=== PATIENT | female | born 1950 | race Caucasian/White ===

== ENCOUNTER 2017-06-30 18:11 | Emergency (ER) | payer MEDICARE, MEDICAID ==
[~2017-06-30] VITALS: Ht 157.5 cm; Wt 70.8 kg
[~2017-06-30 18:11] MED LIST: AZITHROMYCIN250 MG ORAL; COLACE100 MG ORAL; DIFLUCAN150 MG PO; IBUPROFEN400 MG ORAL; IBUPROFEN600 MG ORAL; NORCO 5-325 TA1 EACH ORAL
--- NOTE | 2017-06-30 18:26 | Emergency Room Report ---
History of Present Illness General Chief Complaint: Lower Extremity Injury Source: Patient, Family Member, Medical Record (Kervin Buckley) Present Illness HPI 66 yo female presents to ER s/p right foot injury. Patient reports drawer of fridge fell on her big toe. Patient reports pain is minimal at this time. Patient reports swelling, ecchymosis, and TTP of large toe Patient states she is able to ambulate; states she bears weight on back of her foot. Patient reports history of diabetes. Patient reports history of bunion surgery and wants to know if "nail in foot was moved". Patient denies fever, chest pain, SOB, muscle weakness, dizziness.. (Kervin Buckley) Allergies: Coded Allergies: No Known Allergies (Unverified , 06/11/14) Patient History Past Medical History: see triage record Social History: Denies: smoking, alcohol use, drug use Reviewed Nursing Documentation: PMH: Agreed, PSxH: Agreed (Kervin Buckley) Nursing Documentation-PMH Past Medical History: No History, Except For Hx Cardiac Problems: Yes - High Cholesterol Hx Hypertension: Yes Hx Diabetes: Yes (Kervin Buckley) Review of Systems All Other Systems: negative except mentioned in HPI (Kervin Buckley.Alex) Physical Exam Vital Signs Date Time Temp Pulse Resp B/P (MAP) Pulse Ox O2 Delivery O2 Flow Rate FiO2 06/30/17 18:15 97.9 62 18 144/73 98 Room Air Sp02 EP Interpretation: reviewed, normal General Appearance: no apparent distress, alert, GCS 15, non-toxic Head: normocephalic, atraumatic Eyes: bilateral eye normal inspection, bilateral eye PERRL Respiratory: chest non-tender, lungs clear, normal breath sounds, no respiratory distress, speaking full sentences Cardiovascular #1: regular rate, rhythm Cardiovascular #2: 2+ dorsalis pedis (R), 2+ dorsalis pedis (L) Musculoskeletal: back normal, digits/nails normal, non-tender, no calf tenderness, decreased range of motion - right foot, big toe: decreased ROM secondary to pain and swelling, swelling - ecchymosis over right foot big toe, other - NVI, tender - TTP over right foot big toe Neurologic: alert, oriented x3, responsive, motor strength/tone normal, sensory intact, speech normal Psychiatric: mood/affect normal Skin: no rash, warm/dry, well hydrated (Kervin Buckley) Medical Decision Making PA Attestation Dr. Enrique is my supervising physician with whom patient management has been discussed with. (Kervin Buckley) Diagnostic Impression: Primary Impression: Injury of toe Qualified Codes: S99.921A - Unspecified injury of right foot, initial encounter ER Course Pt. presents to the ED c/o right toe pain. Ddx considered but are not limited to show hairline fracture, sprain, strain, contusion. Vital signs: are WNL, pt. is afebrile ORDERS: An X-ray of the right foot was ordered, results show fracture of the distal phalanx of right big toe, per the preliminary radiology reading. ED INTERVENTIONS: Injured toe was brunilda taped and placed in a hard soled cast shoe. The affected toe was checked afterwards by me showing good alignment and support with distal neurovascular functioning intact. Patient reports she does not need crutches to ambulate. DISCHARGE: -Rx provided for Ibuprofen for pain symptoms. At this time pt. is stable for d/c to home. Patient informed that preliminary reading of x-ray shows possible fracture. Official radiology report will be available in the morning and patient will be called with any positive results. Will provide printed patient care instructions, and any necessary prescriptions. Patient instructed to follow with primary care provider in 3 - 5 days and to request further orthopedic follow-up. Care plan and follow up instructions have been discussed with the patient prior to discharge. Take medications as directed. Patient questions asked and answered. ER precautions given, patient instructed to return to ER immediately for any new or worsening of symptoms. (Kervin Buckley P.ARamírez) Other X-Ray Diagnostic Results Other X-Ray Diagnostic Results : X-Ray ordered: Right foot # of Views/Limited Vs Complete: 2 View Indication: Pain EP Interpretation: Yes PA Xray: Interpretation reviewed, by supervising MD, and agrees with findings. Interpretation: no dislocation, no soft tissue swelling Impression: Other - possible fracture of distal phalanx of big toe on right foot, no displacement, no angulation PA Scribe Text Isak Buckley PA-C (Kervin Buckley.ARamírez) Other X-Ray Diagnostic Results : # of Views/Limited Vs Complete: 3 View EP Interpretation: Yes Interpretation: no dislocation, no soft tissue swelling, no fractures, other - post op changes (screw) also DJD Impression: Other - post op - no fx Electronically Signed by: Eduard Enrique MD (Eduard Enrique M.D.) Last Vital Signs Date Time Temp Pulse Resp B/P (MAP) Pulse Ox O2 Delivery O2 Flow Rate FiO2 06/30/17 18:15 97.9 62 18 144/73 98 Room Air (Kervin Buckley) Last Vital Signs Date Time Temp Pulse Resp B/P (MAP) Pulse Ox O2 Delivery O2 Flow Rate FiO2 06/30/17 19:50 97.9 18 144/73 98 Room Air 06/30/17 18:15 62 Status: improved (Eduard Enrique M.D.) Disposition: HOME, SELF-CARE Condition: Stable Scripts Ibuprofen* (MOTRIN*) 600 Mg Tablet 600 MG ORAL Q8H Y for For Pain, #30 TAB 0 Refills Prov: Kervin Buckley 06/30/17 Patient Instructions: Toe Fracture, [id number] Additional Instructions: Followup with primary care provider in 1- 3 days to discuss treatment and further referral. Wear protective shoe and walk as tolerated, do not walk if painful to bear weight on foot. Take medications as directed. Patient questions asked and answered. ER precautions given, patient instructed to return to ER immediately for any new or worsening of symptoms. Kervin Buckley Jun 30, 2017 18:26 Eduard Enrique M.D. Jul 05, 2017 10:25
[2017-06-30] MEDS ORDERED: IBUPROFEN600 MG ORAL (19:41)
[2017-06-30 19:50] VITALS: BP 144/73
--- NOTE | 2017-07-01 10:05 | Diagnostic Imaging Report ---
Indication: Pain Technique: XRAY Foot Complete R Comparison: None Findings: The bones are demineralized. Patient is status post hallux valgus correction with osteotomy of the first metatarsal affixed by one screw. There is also prior osteotomy of the fifth proximal phalanx, likely prior hammertoe correction. No acute fractures identified. There is degenerative change at the first metatarsophalangeal joint. No focal soft tissue abnormality is evident. No radiopaque foreign body is seen. Impression: Postoperative appearance of the foot. No acute fracture or dislocation.
== END 2017-06-30 19:50 | disposition home or self-care (01) ==
LOC: EMR 18:55
DX: S99.921A Unspecified injury of right foot, initial encounter (principal); W20.8XXA Other cause of strike by thrown, projected or falling object, initial encounter; Y92.89 Other specified places as the place of occurrence of the external cause; I10 Essential (primary) hypertension; E11.9 Type 2 diabetes mellitus without complications; E78.00 Pure hypercholesterolemia, unspecified
CPT/HCPCS: 99283

== ENCOUNTER 2020-07-27 22:48 | Inpatient (IN) | payer MEDICARE, MEDICAID ==
[~2020-07-27] VITALS: Ht 162.6 cm; Wt 59.0 kg
[~2020-07-27 22:48] MED LIST changes: -ATENOLOL25 MG ORAL; -LINZESS145 MCG PO; -LIPITOR40 MG ORAL; -Morphine Sulfate 2mg/ml Inj(IV/IM USE ONLY) ONE; -SYNJARDY 12.5-1 EACH PO; -TRULICITY1.5 MG/0.5 SQ; -VITAMIN B-121000 MC1 INJ
[2020-07-27] MEDS ORDERED: Morphine Sulfate 2mg/ml Inj(IV/IM USE ONLY) IVP ONE ×2 (23:45)
[2020-07-27 23:52] LABS: BASOPHILS % (AUTO) 0.5 % (0.0-2.0); EOSINOPHILS % (AUTO) 0.1 % (0.0-3.0); HEMATOCRIT 47.8 % (37.0-47.0); HEMOGLOBIN 15.8 G/DL (12.0-16.0); LYMPHOCYTES % (AUTO) 14.2 % (20.0-45.0); MEAN CORPUSCULAR VOLUME 89 FL (80-99); MONOCYTES % (AUTO) 4.2 % (1.0-10.0); PLATELET COUNT 235 K/UL (150-450); RED BLOOD COUNT 5.37 M/UL (4.20-5.40); RED CELL DISTRIBUTION WIDTH 12.9 % (11.6-14.8); WHITE BLOOD COUNT 17.5 K/UL (4.8-10.8)
[2020-07-28] MEDS ORDERED: Piperacillin/Tazobactam 3.375 GM in NS 110 ML IVPB ONE ×2
[2020-07-28 00:06] LABS: ANION GAP 8 mmol/L (5-15); BLOOD UREA NITROGEN 20 mg/dL (7-18); CALCIUM 10.3 MG/DL (8.5-10.1); CARBON DIOXIDE 29 MMOL/L (21-32); CHLORIDE 101 MMOL/L (98-107); CREATININE 0.7 MG/DL (0.55-1.30); POTASSIUM 4.3 MMOL/L (3.5-5.1); SODIUM 138 MMOL/L (136-145)
[2020-07-28 00:10] LABS: ALANINE AMINOTRANSFERASE 26 U/L (12-78); ALBUMIN 4.2 G/DL (3.4-5.0); ALKALINE PHOSPHATASE 60 U/L (46-116); ASPARTATE AMINO TRANSFERASE 38 U/L (15-37); BILIRUBIN,TOTAL 0.9 MG/DL (0.2-1.0)
--- NOTE | 2020-07-28 00:26 | Emergency Room Report ---
History of Present Illness General Chief Complaint: Abdominal Pain Source: Patient Present Illness HPI Patient is a 70-year-old female with past medical history of diabetes, dyslipidemia and multiple previous abdominal surgeries who presents to the emergency department with chief complaint of periumbilical abdominal pain after eating this afternoon at 2 PM. Patient endorses nonbloody vomiting and constipation. She does not recall when her last bowel movement was. Last oral intake was this morning. Further history was obtained from her daughter Brooke who states that patient is chronically constipated requiring rectal enema. Patient denies chest pain, back pain, melena, hematochezia, hematemesis, cough, hemoptysis, fever, dysuria, hematuria, flank pain, slurred speech, headache, neck pain or any other symptoms. The patient's symptoms were gradual onset, severity was moderate, duration since 1 day. Quality: Aching/cramping Past medical history: Diabetes, dyslipidemia Past surgical history: x4, hysterectomy, tummy tuck, parathyroid surgery Smoking: Denies Alcohol use: Denies Drug use: Denies Review of systems: CONST: No fevers or chills, No night sweats PULMONARY: No productive cough, No shortness of breath CARDIAC: No chest pain, No palpitations GI: ++ vomiting, No diarrhea , No melena_or_BRBPR : No dysuria, No hematuria, No discharge NEURO: No new_focal_weakness_or_numbness, No confusion, No vision changes 14 point Review of Systems is otherwise negative except per HPI Physical Exam: GENERAL: Awake_alert_ nontoxic, no acute distress Spo2 98% on RA -normal EYES: Extraocular muscles are intact. Conjunctivae clear. Lids without swelling ENT: External nose and ear normal_in_appearance. Oropharynx clear. Head_atraumatic, Moist_oral_mucosa NECK: No JVD. No meningismus. No thyromegaly. Supple. Trachea midline RESP: Normal respiratory effort. Symmetric rise. No stridor. Clear_to_auscultation_No_rales_No_wheezes CARDIAC: Regular rate and regular rhytm. No_significant pedal edema. ABDOMEN: Soft. Mildly distended. Epigastric tenderness to palpation. Left upper quadrant tenderness to palpation_No_rebound_or_guarding. Negative Soto sign. Negative Rovsing's. Negative obturator. No CVA tenderness to palpation MSK: Normal muscle tone, without rigidity. Extremities without asymmetric deformity or swelling. SKIN: Warm and dry. No visible cyanosis or pallor. No petechial rash NEUROLOGIC: Alert, oriented x3. Motor_and_sensation_grossly_intact. No truncal ataxia. Gait_normal Psych: Normal mood and affect, normal judgment and insight - COORDINATION OF CARE Case was discussed with: Patient , Patient's Family , Patient's Physician Any labs and imaging that were ordered were interpreted as part of the medical decision making: Medical Decision Making/Plan: Differential diagnosis includes ileus, SBO, appendicitis, cholecystitis, choledocholithiasis, hepatitis, volvulus, AAA, pancreatitis, DM gastroparesis, gastritis, peptic ulcer disease, among others. Patient is currently afebrile and hemodynamically stable. She has diffuse abdominal tenderness to palpation. No rebound or guarding. No pulsatile mass. Pulses are equal and symmetric in the bilateral upper and lower extremity. Labs show leukocytosis of 17. Lactic acid is within normal limits. No significant acidosis or renal dysfunction. UA is consistent with urinary tract infection. EKG shows normal sinus rhythm. There is a Q wave in lead V3, however no signs of acute ischemia at this time. Doubt anginal equivalent. CT scan of the abdomen and pelvis demonstrates a small bowel obstruction. There is a transition point within the pelvis. There is distention up to 3 cm without any perforation. ED intervention included IV fluids, morphine for pain control, and broad- spectrum antibiotic. Blood cultures were sent. Patient's abdominal pain improved after morphine and dilaudid. I spoke extensively with patient's daughter about the dianosis of SBO with transition point. We spoke about the pathophysiology and treatment options, including the need for nasogastric suction for bowel decompression. The risk, benefits, and alternatives to treatment were discussed. I discussed that the majority of patients respond to conservative management via NG tube, however there is a small percentage of patients that also require surgery if they are refractory to colonic decompression. Her daughter states that she would much prefer for her mother to be discharged home to her care, so that she can see a family physician/GI specialist in the morning. I did educate her that a small bowel obstruction is an emergent diagnosis that requires prompt intervention with nasogastric tube due to risk for bowel necrosis, aspiration, and therefore potential airway concern. I advised that this is not a safe discharge and they would have to leave against medical advice if they wanted to leave the ED at this time with incomplete treatment. Daughter Brooke called her GI specialist, Dr Shaquille Parson, to ask for a second opinion. I also spoke with Dr Parson myself and gave sign out on the patie nt's presentation, laboratory findings, and CT scan showing small bowel obstruction with transition point. He states that he 100% agrees with putting in an NG tube in the emergency department. He also explained the benefits, risks, and alternatives of the procedure to the patient herself. After more verbal education about the pathophysiology of the small bowel obstruction, the carolin hunter now verbally consents to the procedure. Patient was also verbally consented at bedside for NG tube. NG tube was placed without issue and then placed to low intermittent wall suction after KUB confirmed placement. There was immediate retrieval of 150ml of bilious nonbloody material and patient reported immediate improvement of symptoms. The patient denies any bloody stool and has no pain out of proportion to exam, and no significant risk factors for mesenteric ischemia such as atrial fibrillation or severe PAD/PVD (peripheral arterial / vascular disease), thus definitive workup to rule out mesenteric ischemia was not pursued. Patient is afebrile, without any significant tenderness in the RUQ, and a negative Grampian sign. The patients presentation does not appear to be consistent with acute cholecystitis and thus definitive imaging to rule it out was not pursued. The patient has no significant risk factors for AAA (abdominal aortic aneurysm) such as age over 50 with history of hypertension, c onnective tissue disorder, or 1st degree relative with AAA. the patient has normal dorsalis pedis pulses, no radiation of pain to the back, and no pulsatile mass felt on exam. The patients profile was overall low risk for AAA and definitive workup was not pursued. The patients symptoms are not consistent with ACS (acute coronary syndrome), symptoms are not exertional, EKG without obvious ischemic change. I spoke with Dr. Chu, and reviewed the patients presentation, workup, results, and treatment. They will admit the patient for further care and evaluation, and assume care of the patient at this time. 0450; I also spoke with our [employer] management consultant, Dr. Mora who agrees to see and evaluate the patient. 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 COVID-19 Screening: Negative COVID-19 COVID-19 Testing Source: [place] Patient History Now: No Nursing Documentation-PMH Hx Cardiac Problems: Yes - High Cholesterol Hx Diabetes: Yes Physical Exam Vital Signs Date Time Temp Pulse Resp B/P (MAP) Pulse Ox O2 Delivery O2 Flow Rate FiO2 07/27/20 23:25 98.4 78 23 130/81 (97) 98 Room Air Sp02 EP Interpretation: reviewed, normal Medical Decision Making Diagnostic Impression: Primary Impression: Abdominal pain Additional Impressions: Small bowel obstruction Vomiting Diabetes Dyslipidemia UTI (urinary tract infection) EKG Diagnostic Results Troponin ordered: Yes When was troponin ordered?: Jul 28, 2020 JANINA Scribgreyson Text 12-lead EKG (interpreted by me) Time: 6 Indication: Rhythm analysis Tracing visualized and Interpreted by me. Rhythm: Normal sinus rhythm Rate: 67 bpm QTc: 456 Morphology: No_significant_ST_elevations_or_depressions, No STEMI Impression: Normal sinus rhythm. Q wave in lead V3. Normal axis. Normal intervals. Rhythm Strip Diag. Results Rhythm Strip Time: 01:47 EP Interpretation: yes Rate: 80 Rhythm: NSR, no PVC's, no ectopy Chest X-Ray Diagnostic Results Chest X-Ray Diagnostic Results : JANINA Scribgreyson Text XR Chest, 1 View Read by Me TECHNIQUE: Frontal view of the chest. FINDINGS/IMPRESSION: Enteric feeding tube terminates in the stomach. Emphysema with increased interstitial markings, correlate for COPD. No pleural effusion or pneumothorax. Stable cardiomegaly. Diffuse osseous demineralization. EXAM: XR Abdomen, 2 Views read by me COMPARISON: No relevant prior studies available. FINDINGS/IMPRESSION: Feeding tube terminates in the stomach. Nonobstructed bowel gas pattern. No free air under the diaphragms. Degenerative spine. Radiologist: Edison Andujar MD CT/MRI/US Diagnostic Results CT/MRI/US Diagnostic Results : Impression CT Abdomen and Pelvis Without Intravenous Contrast COMPARISON: No relevant prior studies available. FINDINGS: ABDOMEN: Liver: Unremarkable. Gallbladder and bile ducts: Unremarkable. Pancreas: Unremarkable. Spleen: Unremarkable. Adrenals: Unremarkable. Kidneys and ureters: Unremarkable. No obstructing stones. No hydronephrosis. Stomach and bowel: Small bowel obstruction. Transition point within the pelvis. Distention up to 3 cm. No perforation. PELVIS: Appendix: No findings to suggest acute appendicitis. Bladder: Unremarkable. Reproductive: Hysterectomy. ABDOMEN and PELVIS: Intraperitoneal space: Unremarkable. No free air. No significant fluid collection. Bones/joints: No acute fracture. Soft tissues: Unremarkable. Vasculature: Unremarkable. Lymph nodes: Unremarkable. IMPRESSION: Small bowel obstruction. Transition point within the pelvis. Distention up to 3 cm. No perforation. Dictated By: Osorio Duran M.D. Reevaluation Time: 04:55 Last Vital Signs Date Time Temp Pulse Resp B/P (MAP) Pulse Ox O2 Delivery O2 Flow Rate FiO2 07/27/20 23:25 98.4 78 23 130/81 (97) 98 Room Air Status: improved Disposition: ADMITTED INPATIENT Admit Decision Time: 04:55 Condition: Stable Referrals: NOT CHOSEN IPA/,REFERRING (PCP) Zulema Samson D.O. Jul 28, 2020 00:26
[2020-07-28 01:03] LABS: APPEARANCE,URINE CLEAR; BILIRUBIN, URINE NEGATIVE (NEGATIVE); COLOR,URINE PALE YELLOW; GLUCOSE, URINE (UA) 4+ (NEGATIVE); KETONES,URINE 3+ (NEGATIVE); LEUKOCYTE ESTERASE ,URINE 2+ (NEGATIVE); NITRITE,URINE NEGATIVE (NEGATIVE); PH,URINE 5 (4.5-8.0); PROTEIN,URINE NEGATIVE (NEGATIVE); UROBILINOGEN,URINE NORMAL MG/DL (0.0-1.0)
[2020-07-28 01:17] VITALS: BP 130/57
--- NOTE | 2020-07-28 01:21 | Diagnostic Imaging Report ---
EXAM: CT Abdomen and Pelvis Without Intravenous Contrast CLINICAL HISTORY: PAIN TECHNIQUE: Axial computed tomography images of the abdomen and pelvis without intravenous contrast. CTDI is 4.1 mGy and DLP is 218.2 mGy-cm. One or more of the following dose reduction techniques were used: automated exposure control, adjustment of the mA and/or kV according to patient size, use of iterative reconstruction technique. COMPARISON: No relevant prior studies available. FINDINGS: ABDOMEN: Liver: Unremarkable. Gallbladder and bile ducts: Unremarkable. Pancreas: Unremarkable. Spleen: Unremarkable. Adrenals: Unremarkable. Kidneys and ureters: Unremarkable. No obstructing stones. No hydronephrosis. Stomach and bowel: Small bowel obstruction. Transition point within the pelvis. Distention up to 3 cm. No perforation. PELVIS: Appendix: No findings to suggest acute appendicitis. Bladder: Unremarkable. Reproductive: Hysterectomy. ABDOMEN and PELVIS: Intraperitoneal space: Unremarkable. No free air. No significant fluid collection. Bones/joints: No acute fracture. Soft tissues: Unremarkable. Vasculature: Unremarkable. Lymph nodes: Unremarkable. IMPRESSION: Small bowel obstruction. Transition point within the pelvis. Distention up to 3 cm. No perforation.
[2020-07-28] MEDS ORDERED: Lidocaine 2% Visc 15ml soln ORAL ONE (02:30)
[2020-07-28] MEDS ORDERED: Morphine Sulfate 2mg/ml Inj(IV/IM USE ONLY) IVP ONE (02:45)
--- NOTE | 2020-07-28 03:41 | Diagnostic Imaging Report ---
EXAM: XR Chest, 1 View CLINICAL HISTORY: NGT TECHNIQUE: Frontal view of the chest. COMPARISON: No relevant prior studies available. FINDINGS/IMPRESSION: Enteric feeding tube terminates in the stomach. Emphysema with increased interstitial markings, correlate for COPD. No pleural effusion or pneumothorax. Stable cardiomegaly. Diffuse osseous demineralization. EXAM: XR Abdomen, 2 Views CLINICAL HISTORY: NGT TECHNIQUE: Frontal view of the abdomen/pelvis with upright view of the abdomen. COMPARISON: No relevant prior studies available. FINDINGS/IMPRESSION: Feeding tube terminates in the stomach. Nonobstructed bowel gas pattern. No free air under the diaphragms. Degenerative spine.
[2020-07-28 03:46] VITALS: BP 119/65
[2020-07-28] MEDS ORDERED: HYDROmorphone 1mg/ml Carpuject IVP ONE (05:00)
[2020-07-28 08:30] VITALS: BP 148/70
[2020-07-28] MEDS ORDERED: TRULICITY1.5 MG/0.5 SQ (10:20)
[2020-07-28] MEDS ORDERED: SYNJARDY 12.5-1 EACH PO (10:20)
[2020-07-28] MEDS ORDERED: VITAMIN B-121000 MC1 INJ (10:20)
[2020-07-28] MEDS ORDERED: LINZESS145 MCG PO (10:20)
[2020-07-28] MEDS ORDERED: ATENOLOL25 MG ORAL (10:20)
[2020-07-28] MEDS ORDERED: LIPITOR40 MG ORAL (10:20)
[2020-07-28] MEDS ORDERED: Morphine Sulfate 2mg/ml Inj(IV/IM USE ONLY) IVP PRN ×4 (10:45→16:15)
[2020-07-28] MEDS ORDERED: HydrALAZINE 25mg tab ORAL PRN (10:45)
--- NOTE | 2020-07-28 10:51 | History & Physical ---
History of Present Illness General Reason for Hospitalization: Abdominal Pain Present Illness Allergies: Coded Allergies: No Known Allergies (Unverified , 06/08/19) COVID-19 Screening Contact w/high risk pt: No Experienced COVID-19 symptoms?: No Medication History Scheduled Atenolol* (Tenormin*), 25 MG ORAL DAILY, (Reported) Atorvastatin Calcium* (Lipitor*), 40 MG ORAL DAILY, (Reported) Cyanocobalamin (Vitamin B-12) (Vitamin B-12), 1,000 MCG INJ once a month, (Reported) Dulaglutide (Trulicity), 1.5 MG SQ ONCE A WEEK, (Reported) Empagliflozin/Metformin HCl (Synjardy 12.5-1,000 mg Tablet), 1 EACH PO TWICE A DAY, (Reported) Linaclotide (Linzess), 145 MCG PO DAILY, (Reported) Discontinued Medications Aspirin* (Aspir 81*), 81 MG ORAL DAILY, (Reported) Discontinued Reason: Pt stopped taking med Bacitracin (Bacitracin), 1 APPLIC TOPIC BID Discontinued Reason: Pt stopped taking med Ibuprofen (Motrin), 600 MG ORAL Q8H PRN for For Pain Discontinued Reason: Pt stopped taking med Patient History Healthcare decision maker Resuscitation status Advanced Directive on File Review of Systems Review of Symptoms General ROS: no weight loss or fever Psychological ROS: no depression or mood changes, no memory loss Ophthalmic ROS: no visual changes or eye irritation ENT ROS: no nasal congestion, hearing loss, dizziness Allergy and Immunology ROS: no allergic symptoms or urticaria Hematological and Lymphatic ROS: no swollen glands, unusual bleeding or bruising Endocrine ROS: no polyuria, polydipsia, weight changes, temperature intolerance Respiratory ROS: no cough, shortness of breath, or wheezing Cardiovascular ROS: no chest pain or dyspnea on exertion Gastrointestinal ROS: + abd pain Musculoskeletal ROS: no myalgias or arthralgias Neurological ROS: no TIA or stroke symptoms Dermatological ROS: no new or changing skin lesions, rashes or pruritis Physical Exam Physical Exam General appearance: alert, cooperative, no distress, appears stated age Head: Normocephalic, without obvious abnormality, atraumatic Eyes: conjunctivae/corneas clear. PERRL, Throat: Lips, mucosa, and tongue normal. Teeth and gums normal Neck: supple, symmetrical, trachea midline, no adenopathy, thyroid: not enlarged, symmetric, no tenderness/mass/nodules, no carotid bruit and no JVD Lungs: clear to auscultation bilaterally Heart: regular rate and rhythm, S1, S2 normal, no murmur, click, rub or gallop Abdomen: Diffuse abd pain Extremities: extremities normal, atraumatic, no cyanosis or edema Pulses: 2+ and symmetric Skin: Skin color, texture, turgor normal. No rashes or lesions Neurologic: Grossly normal Last 24 Hour Vital Signs Date Time Temp Pulse Resp B/P (MAP) Pulse Ox O2 Delivery O2 Flow Rate FiO2 07/28/20 08:31 97.8 82 18 119/65 99 Room Air 07/28/20 08:30 99.0 91 18 148/70 (96) 98 07/28/20 03:46 97.8 82 18 119/65 99 Room Air 07/28/20 03:11 97.8 07/28/20 01:17 98.4 68 18 130/57 98 Room Air 07/28/20 01:07 78 23 Room Air 07/28/20 00:51 98.7 07/27/20 23:25 98.4 78 23 130/81 (97) 98 Room Air Intake and Output 07/27/20 07/28/20 19:00 07:00 Intake Total 100 ml Balance 100 ml Intake Oral 100 ml # Voids 2 Laboratory Tests Test 07/27/20 23:15 07/28/20 00:45 07/28/20 05:25 White Blood Count 17.5 K/UL (4.8-10.8) H Red Blood Count 5.37 M/UL (4.20-5.40) Hemoglobin 15.8 G/DL (12.0-16.0) Hematocrit 47.8 % (37.0-47.0) H Mean Corpuscular Volume 89 FL (80-99) Mean Corpuscular Hemoglobin 29.5 PG (27.0-31.0) Mean Corpuscular Hemoglobin Concent 33.2 G/DL (32.0-36.0) Red Cell Distribution Width 12.9 % (11.6-14.8) Platelet Count 235 K/UL (150-450) Mean Platelet Volume 7.8 FL (6.5-10.1) Neutrophils (%) (Auto) 81.0 % (45.0-75.0) H Lymphocytes (%) (Auto) 14.2 % (20.0-45.0) L Monocytes (%) (Auto) 4.2 % (1.0-10.0) Eosinophils (%) (Auto) 0.1 % (0.0-3.0) Basophils (%) (Auto) 0.5 % (0.0-2.0) Prothrombin Time 10.9 SEC (9.30-11.50) Prothromb Time International Ratio 1.0 (0.9-1.1) Activated Partial Thromboplast Time 24 SEC (23-33) Sodium Level 138 MMOL/L (136-145) Potassium Level 4.3 MMOL/L (3.5-5.1) Chloride Level 101 MMOL/L (98-107) Carbon Dioxide Level 29 MMOL/L (21-32) Anion Gap 8 mmol/L (5-15) Blood Urea Nitrogen 20 mg/dL (7-18) H Creatinine 0.7 MG/DL (0.55-1.30) Estimat Glomerular Filtration Rate > 60 mL/min (>60) Glucose Level 180 MG/DL (74-106) H Lactic Acid Level 1.10 mmol/L (0.4-2.0) Calcium Level 10.3 MG/DL (8.5-10.1) H Total Bilirubin 0.9 MG/DL (0.2-1.0) Aspartate Amino Transf (AST/SGOT) 38 U/L (15-37) H Alanine Aminotransferase (ALT/SGPT) 26 U/L (12-78) Alkaline Phosphatase 60 U/L (46-116) Troponin I 0.000 ng/mL (0.000-0.056) Total Protein 8.2 G/DL (6.4-8.2) Albumin 4.2 G/DL (3.4-5.0) Globulin 4.0 g/dL Albumin/Globulin Ratio 1.0 (1.0-2.7) Lipase 70 U/L (73-393) L Urine Color Pale yellow Urine Appearance Clear Urine pH 5 (4.5-8.0) Urine Specific [place] 1.020 (1.005-1.035) Urine Protein Negative (NEGATIVE) Urine Glucose (UA) 4+ (NEGATIVE) H Urine Ketones 3+ (NEGATIVE) H Urine Blood 2+ (NEGATIVE) H Urine Nitrite Negative (NEGATIVE) Urine Bilirubin Negative (NEGATIVE) Urine Urobilinogen Normal MG/DL (0.0-1.0) Urine Leukocyte Esterase 2+ (NEGATIVE) H Urine RBC 2-4 /HPF (0 - 2) H Urine WBC 30-40 /HPF (0 - 2) H Urine Squamous Epithelial Cells Few /LPF (NONE/OCC) Urine Bacteria Few /HPF (NONE) POC Whole Blood Glucose Pending Microbiology Date/Time Source Procedure Growth Status 07/28/20 00:00 Nasopharynx SARS-CoV-2 Antigen (Rapid)(MICHAEL) - Final Complete Height (Feet): 5 Height (Inches): 4.00 Weight (Pounds): 130 Medications Current Medications Medications (Trade) Dose Ordered Sig/Alexis Route PRN Reason Start Time Stop Time Status Last Admin Dose Admin Acetaminophen (Tylenol) 650 mg Q4H PRN ORAL Fever (temp > or = 100.4) 07/28/20 10:45 08/27/20 10:44 UNV Acetaminophen (Tylenol) 650 mg Q4H PRN ORAL Mild Pain (Pain Scale 1-3) 07/28/20 10:45 08/27/20 10:44 UNV Atenolol (Tenormin) 25 mg DAILY ORAL 07/29/20 09:00 08/28/20 08:59 UNV Atorvastatin Calcium (Lipitor) 40 mg DAILY ORAL 07/29/20 09:00 10/27/20 08:59 UNV Dextrose/Sodium Chloride 1,000 ml @ 75 mls/hr [id number] IV 07/28/20 10:45 08/27/20 10:44 UNV Hydralazine HCl (Apresoline) 25 mg Q4HR PRN ORAL SBP > 160 mm Hg 07/28/20 10:45 10/26/20 10:44 UNV Linaclotide (Linzess) 145 mcg DAILY ORAL 07/29/20 09:00 10/27/20 08:59 UNV Morphine Sulfate (Morphine Sulfate) 1 mg Q3HR PRN IVP For moderate pain (4-6) 07/28/20 10:45 08/04/20 10:44 UNV Morphine Sulfate (Morphine Sulfate) 2 mg Q2HR PRN IVP For severe pain (7-10) 07/28/20 10:45 08/04/20 10:44 UNV Non-Formulary Medication (Non-Formulary Med) 1 ea DAILY ORAL 07/29/20 09:00 08/28/20 08:59 UNV Non-Formulary Medication (Non-Formulary Med) 1 ea DAILY ORAL 07/29/20 09:00 08/28/20 08:59 UNV Non-Formulary Medication (Non-Formulary Med) 1 ea DAILY ORAL 07/29/20 09:00 08/28/20 08:59 UNV Non-Formulary Medication (Non-Formulary Med) 1 ea DAILY ORAL 07/29/20 09:00 08/28/20 08:59 UNV Non-Formulary Medication (Non-Formulary Med) 1 ea DAILY ORAL 07/29/20 09:00 08/28/20 08:59 UNV Ondansetron HCl (Zofran) 4 mg Q4HR PRN IVP Nausea & Vomiting 07/28/20 10:45 08/27/20 10:44 UNV Assessment/Plan Diagnosis [place]: #abd pain #nausea #SBO #diabetes # dyslipidemia #multiple previous abdominal surgeries (c section, hysterectomy) IMPRESSION: Small bowel obstruction. Transition point within the pelvis. Distention up to 3 cm. No perforation. - admit inpatient - NG placement - hold meds for now - pain control - antiemetics - NPO - general surgery eval - Bg control - ISS - monitor BP [facility] Hospital declaration I spent 70 minutes on this patient's case, and 35 minutes was dedicated to counseling and/or care coordination. MIPS ([employer]it-based Incentive Payment System) Applicable CPT: 44628, 83886 CHECK ALL THAT ARE MET: Measure #5 (CHF): All ages. Prescribe MICHELLE/ARB upon discharge for patients with left ventricular systolic dysfunction. If not, the reason is clearly documented in the medical chart. Measure #8 (CHF): All ages. Prescribe a beta timmy upon discharge for patients with left ventricular systolic dysfunction. If not, the reason is clearly documented in the medical chart. Measure #47 Advance care plan or surrogate decision maker documented in the medical record. Measure #130 The provider has documented, updated, or reviewed the patients current medication list and has documented it in the patients note. Measure #374 (All): Send report to referring provider. Measure #407(Sepsis due to MSSA bacteremia): Age 18+ Patient treated with a beta-lactam antibiotic (Nafcillin, Oxacillin or Cefazolin) as definitive therapy. MEDICAL COMPLEXITY High complexity medical decision making (need 2/3 categories) Problem - need 4 points Acute/new problem with new plan for workup (4 points, 1 max) Acute/new problem without additional workup (3 points, 1 max) Unstable chronic problem actively being managed (2 point each, 2 max) Stable chronic problem actively being managed (1 point each, 2 max) Self-limited/transient process (constipation, muscle ache, etc) (1 point each, 2 max) Data - need 4 points Reviewed labs/imaging studies (1 points, 2 max) Independent review of imaging (EKG, xrays, etc) (2 points, 2 max) Discussed case with consult/other MD/RN (2 points, 2 max) High Risk - qualify if have one of the following: Severe exacerbation of acute problem, acute mental status change, IV narcotics, monitoring drug levels (vancomycin, INR, tacrolimus etc) López Matthews M.D. Jul 28, 2020 10:51
--- NOTE | 2020-07-28 11:21 | Consultation ---
History of Present Illness General Date patient seen: Jul 28, 2020 Reason for Hospitalization: Abdominal Pain Present Illness HPI Patient is a 70-year-old female with past medical history of diabetes, dyslipidemia and multiple previous abdominal surgeries (c section, hysterectomy) who presents to the emergency department with chief complaint of periumbilical abdominal pain after eating afternoon at 2 PM day of admission. Patient endorses nonbloody vomiting and constipation. She does not recall when her last bowel movement was. Last oral intake was that morning prior to pain. went to restroom and had small bm but pain worse after. came in for evaluation. noted to have leukocytosis and sbo. surgery called to evaluate and assist with care. patient seen, chart reviewed, patient examined. Further history was obtained from her daughter Brooke who states that patient is chronically constipated requiring rectal enema. Patient denies chest pain, back pain, melena, hematochezia, hematemesis, cough, hemoptysis, fever, dysuria, hematuria, flank pain, slurred speech, headache, neck pain or any other symptoms. The patient's symptoms were gradual onset, severity was moderate, duration since 1 day. Allergies: Coded Allergies: No Known Allergies (Unverified , 06/08/19) COVID-19 Screening Contact w/high risk pt: No Experienced COVID-19 symptoms?: No Medication History Scheduled Atenolol* (Tenormin*), 25 MG ORAL DAILY, (Reported) Atorvastatin Calcium* (Lipitor*), 40 MG ORAL DAILY, (Reported) Cyanocobalamin (Vitamin B-12) (Vitamin B-12), 1,000 MCG INJ once a month, (Reported) Dulaglutide (Trulicity), 1.5 MG SQ ONCE A WEEK, (Reported) Empagliflozin/Metformin HCl (Synjardy 12.5-1,000 mg Tablet), 1 EACH PO TWICE A DAY, (Reported) Linaclotide (Linzess), 145 MCG PO DAILY, (Reported) Discontinued Medications Aspirin* (Aspir 81*), 81 MG ORAL DAILY, (Reported) Discontinued Reason: Pt stopped taking med Bacitracin (Bacitracin), 1 APPLIC TOPIC BID Discontinued Reason: Pt stopped taking med Ibuprofen (Motrin), 600 MG ORAL Q8H PRN for For Pain Discontinued Reason: Pt stopped taking med Patient History History Provided By: Patient, Family Member, Medical Record, PMD Healthcare decision maker Resuscitation status Advanced Directive on File Past Medical/Surgical History Past Medical/Surgical History: (1) Chest pain (2) Chest pain (3) Injury of lower extremity (4) Knee contusion (5) Injury of lower extremity (6) Upper respiratory infection (7) Knee abrasion (8) Patellar fracture (9) Hand contusion (10) Patient left without being seen (11) Diabetes (12) UTI (urinary tract infection) (13) Abdominal pain (14) Vomiting (15) Dyslipidemia (16) Small bowel obstruction Review of Systems Review of Symptoms General ROS: no weight loss or fever Psychological ROS: no depression or mood changes, no memory loss Ophthalmic ROS: no visual changes or eye irritation ENT ROS: no nasal congestion, hearing loss, dizziness Allergy and Immunology ROS: no allergic symptoms or urticaria Hematological and Lymphatic ROS: no swollen glands, unusual bleeding or bruising Endocrine ROS: no polyuria, polydipsia, weight changes, temperature intolerance Respiratory ROS: no cough, shortness of breath, or wheezing Cardiovascular ROS: no chest pain or dyspnea on exertion Gastrointestinal ROS: ++ abdominal pain, bright red blood in stool. Musculoskeletal ROS: no myalgias or arthralgias Neurological ROS: no TIA or stroke symptoms Dermatological ROS: no new or changing skin lesions, rashes or pruritis Physical Exam Physical Exam General appearance: alert, cooperative, no distress, appears stated age Head: Normocephalic, without obvious abnormality, atraumatic Eyes: conjunctivae/corneas clear. PERRL, EOM's intact. Fundi benign Throat: Lips, mucosa, and tongue normal. Teeth and gums normal Neck: supple, symmetrical, trachea midline, no adenopathy, thyroid: not enlarged, symmetric, no tenderness/mass/nodules, no carotid bruit and no JVD Lungs: clear to auscultation bilaterally Heart: regular rate and rhythm, S1, S2 normal, no murmur, click, rub or gallop Abdomen: soft, mild pelvic lower abdomen -tender. Bowel sounds dec No masses, no organomegaly Extremities: extremities normal, atraumatic, no cyanosis or edema Pulses: 2+ and symmetric Skin: Skin color, texture, turgor normal. No rashes or lesions Neurologic: Grossly normal Last 24 Hour Vital Signs Date Time Temp Pulse Resp B/P (MAP) Pulse Ox O2 Delivery O2 Flow Rate FiO2 07/28/20 08:31 97.8 82 18 119/65 99 Room Air 07/28/20 08:30 99.0 91 18 148/70 (96) 98 07/28/20 03:46 97.8 82 18 119/65 99 Room Air 07/28/20 03:11 97.8 07/28/20 01:17 98.4 68 18 130/57 98 Room Air 07/28/20 01:07 78 23 Room Air 07/28/20 00:51 98.7 07/27/20 23:25 98.4 78 23 130/81 (97) 98 Room Air Intake and Output 07/27/20 07/28/20 19:00 07:00 Intake Total 100 ml Balance 100 ml Intake Oral 100 ml # Voids 2 Laboratory Tests Test 07/27/20 23:15 07/28/20 00:45 07/28/20 05:25 White Blood Count 17.5 K/UL (4.8-10.8) H Red Blood Count 5.37 M/UL (4.20-5.40) Hemoglobin 15.8 G/DL (12.0-16.0) Hematocrit 47.8 % (37.0-47.0) H Mean Corpuscular Volume 89 FL (80-99) Mean Corpuscular Hemoglobin 29.5 PG (27.0-31.0) Mean Corpuscular Hemoglobin Concent 33.2 G/DL (32.0-36.0) Red Cell Distribution Width 12.9 % (11.6-14.8) Platelet Count 235 K/UL (150-450) Mean Platelet Volume 7.8 FL (6.5-10.1) Neutrophils (%) (Auto) 81.0 % (45.0-75.0) H Lymphocytes (%) (Auto) 14.2 % (20.0-45.0) L Monocytes (%) (Auto) 4.2 % (1.0-10.0) Eosinophils (%) (Auto) 0.1 % (0.0-3.0) Basophils (%) (Auto) 0.5 % (0.0-2.0) Prothrombin Time 10.9 SEC (9.30-11.50) Prothromb Time International Ratio 1.0 (0.9-1.1) Activated Partial Thromboplast Time 24 SEC (23-33) Sodium Level 138 MMOL/L (136-145) Potassium Level 4.3 MMOL/L (3.5-5.1) Chloride Level 101 MMOL/L (98-107) Carbon Dioxide Level 29 MMOL/L (21-32) Anion Gap 8 mmol/L (5-15) Blood Urea Nitrogen 20 mg/dL (7-18) H Creatinine 0.7 MG/DL (0.55-1.30) Estimat Glomerular Filtration Rate > 60 mL/min (>60) Glucose Level 180 MG/DL (74-106) H Lactic Acid Level 1.10 mmol/L (0.4-2.0) Calcium Level 10.3 MG/DL (8.5-10.1) H Total Bilirubin 0.9 MG/DL (0.2-1.0) Aspartate Amino Transf (AST/SGOT) 38 U/L (15-37) H Alanine Aminotransferase (ALT/SGPT) 26 U/L (12-78) Alkaline Phosphatase 60 U/L (46-116) Troponin I 0.000 ng/mL (0.000-0.056) Total Protein 8.2 G/DL (6.4-8.2) Albumin 4.2 G/DL (3.4-5.0) Globulin 4.0 g/dL Albumin/Globulin Ratio 1.0 (1.0-2.7) Lipase 70 U/L (73-393) L Urine Color Pale yellow Urine Appearance Clear Urine pH 5 (4.5-8.0) Urine Specific [place] 1.020 (1.005-1.035) Urine Protein Negative (NEGATIVE) Urine Glucose (UA) 4+ (NEGATIVE) H Urine Ketones 3+ (NEGATIVE) H Urine Blood 2+ (NEGATIVE) H Urine Nitrite Negative (NEGATIVE) Urine Bilirubin Negative (NEGATIVE) Urine Urobilinogen Normal MG/DL (0.0-1.0) Urine Leukocyte Esterase 2+ (NEGATIVE) H Urine RBC 2-4 /HPF (0 - 2) H Urine WBC 30-40 /HPF (0 - 2) H Urine Squamous Epithelial Cells Few /LPF (NONE/OCC) Urine Bacteria Few /HPF (NONE) POC Whole Blood Glucose Pending Microbiology Date/Time Source Procedure Growth Status 07/28/20 00:00 Nasopharynx SARS-CoV-2 Antigen (Rapid)(MICHAEL) - Final Complete Height (Feet): 5 Height (Inches): 4.00 Weight (Pounds): 130 Medications Current Medications Medications (Trade) Dose Ordered Sig/Alexis Route PRN Reason Start Time Stop Time Status Last Admin Dose Admin Acetaminophen (Tylenol) 650 mg Q4H PRN ORAL Fever (temp > or = 100.4) 07/28/20 10:45 08/27/20 10:44 Acetaminophen (Tylenol) 650 mg Q4H PRN ORAL Mild Pain (Pain Scale 1-3) 07/28/20 10:45 08/27/20 10:44 Atenolol (Tenormin) 25 mg DAILY ORAL 07/29/20 09:00 08/28/20 08:59 Atorvastatin Calcium (Lipitor) 40 mg QHS ORAL 07/28/20 21:00 10/26/20 20:59 Dextrose/Sodium Chloride 1,000 ml @ 75 mls/hr [id number] IV 07/28/20 11:00 08/27/20 10:59 Hydralazine HCl (Apresoline) 25 mg Q4H PRN ORAL SBP > 160 mm Hg 07/28/20 10:45 10/26/20 10:44 Linaclotide (Linzess) 144 mcg DAILY ORAL 07/29/20 09:00 10/27/20 08:59 Morphine Sulfate (Morphine Sulfate) 1 mg Q3H PRN IVP For moderate pain (4-6) 07/28/20 10:45 08/04/20 10:44 Morphine Sulfate (Morphine Sulfate) 2 mg Q2H PRN IVP For severe pain (7-10) 07/28/20 10:45 08/04/20 10:44 Non-Formulary Medication (Non-Formulary Med) 1 ea DAILY ORAL 07/29/20 09:00 08/28/20 08:59 UNV Non-Formulary Medication (Non-Formulary Med) 1 ea DAILY ORAL 07/29/20 09:00 08/28/20 08:59 UNV Non-Formulary Medication (Non-Formulary Med) 1 ea DAILY ORAL 07/29/20 09:00 08/28/20 08:59 UNV Ondansetron HCl (Zofran) 4 mg Q4H PRN IVP Nausea & Vomiting 2/18/21 10:45 08/27/20 10:44 Assessment/Plan Problem List: (1) Diabetes ICD Codes: E11.9 - Type 2 diabetes mellitus without complications SNOMED: 62142565 (2) UTI (urinary tract infection) ICD Codes: N39.0 - Urinary tract infection, site not specified SNOMED: 28465089 (3) Abdominal pain ICD Codes: R10.9 - Unspecified abdominal pain SNOMED: 20316748 (4) Vomiting ICD Codes: R11.10 - Vomiting, unspecified SNOMED: 989946884 (5) Dyslipidemia ICD Codes: E78.5 - Hyperlipidemia, unspecified SNOMED: 476120751 (6) Upper respiratory infection ICD Codes: J06.9 - Acute upper respiratory infection, unspecified SNOMED: 68199683 (7) Small bowel obstruction Assessment & Plan: This is a 70-year-old female with history of multiple abdominal surgeries including , hysterectomy, abdominoplasty who presented with acute onset abdominal pain for 1 day with associated nausea and vomiting. Leukocytosis identified CT with small bowel obstruction transition point in the pelvis. NG tube placed patient made n.p.o. and admitted further care and management. When seen at the bedside patient states her pain is fairly better and nothing as compared to yesterday when it began. States she has not had any flatus or bowel movement today last flatus and bowel movement was early yesterday prior to worsening onset. NG tube in place with minimal output since. KUB recent after CT scan with nonobstructive bowel gas pattern. On abdominal examination she is uncomfortable when palpating the lower pelvis but the remainder of the quadrants are fairly benign. She does not look significantly distended and is fairly comfortable. Currently no nausea vomiting fever chills. CT reviewed personally and there is significant portion of the small bowel with transition point identified in the proximal portion does have significant amount of fluid noted in it with distention. She is fairly constipated as the remaining of her colon distally is full. History of chronic constipation noted as well. Given the above findings Clinical examination review of the imaging patient does have a small bowel obstruction likely to secondary to abdominal adhesions from prior surgery. She has been initiated on nonoperative conservative management and slightly improved. I do long discussion with the patient regards the findings and decision and care plan choices. We discussed operative intervention versus nonoperative. Given she is made a slight improvement in the course over the past few hours we will continue with current care plan. N.p.o. IV fluids NG tube to suction repeat KUB in the morning followed by serial abdominal examinations. If continues to improve and potentially resolves a potential. Otherwise I discussed care plan with patient and there is potential for requiring exploratory laparotomy. Will follow with recommendations thank you for letting present patient's care Liver: Unremarkable. Gallbladder and bile ducts: Unremarkable. Pancreas: Unremarkable. Spleen: Unremarkable. Adrenals: Unremarkable. Kidneys and ureters: Unremarkable. No obstructing stones. No hydronephrosis. Stomach and bowel: Small bowel obstruction. Transition point within the pelvis. Distention up to 3 cm. No perforation. PELVIS: Appendix: No findings to suggest acute appendicitis. Bladder: Unremarkable. Reproductive: Hysterectomy. ABDOMEN and PELVIS: Intraperitoneal space: Unremarkable. No free air. No significant fluid collection. Bones/joints: No acute fracture. Soft tissues: Unremarkable. Vasculature: Unremarkable. Lymph nodes: Unremarkable. IMPRESSION: Small bowel obstruction. Transition point within the pelvis. Distention up to 3 cm. No perforation. ICD Codes: K56.609 - Unspecified intestinal obstruction, unspecified as to partial versus complete obstruction SNOMED: 139916610 (8) Chest pain ICD Codes: R07.9 - Chest pain, unspecified SNOMED: 97037339 (9) Chest pain ICD Codes: R07.9 - Chest pain, unspecified SNOMED: 57511630 (10) Patellar fracture ICD Codes: S82.009A - Unspecified fracture of unspecified patella, initial encounter for closed fracture SNOMED: 44134875 (11) Patient left without being seen ICD Codes: Z53.21 - Procedure and treatment not carried out due to patient leaving prior to being seen by health care provider SNOMED: 58801779825472 (12) Knee contusion ICD Codes: S80.00XA - Contusion of unspecified knee, initial encounter SNOMED: 39825192 (13) Hand contusion ICD Codes: S60.229A - Contusion of unspecified hand, initial encounter SNOMED: 4114257 (14) Injury of lower extremity ICD Codes: S89.90XA - Unspecified injury of unspecified lower leg, initial encounter SNOMED: 730655474 (15) Injury of lower extremity ICD Codes: S89.90XA - Unspecified injury of unspecified lower leg, initial encounter SNOMED: 983396742 (16) Knee abrasion ICD Codes: S80.219A - Abrasion, unspecified knee, initial encounter SNOMED: 197145760 Jaguar Mora Jul 28, 2020 11:21
[2020-07-28] MEDS: D5 1/2NS 1,000 ML IV SCH (11:35)
[2020-07-28 12:00] VITALS: BP 128/57
[2020-07-28] MEDS: Piperacillin/Tazobactam 3.375 GM in NS 110 ML IVPB SCH ×2 (14:56→21:41)
--- NOTE | 2020-07-28 15:24 | Consultation ---
Consult Note Consult Note DATE OF CONSULTATION: 07/28/2020 CONSULTING PHYSICIAN: Sean Prince MD. ATTENDING PHYSICIAN: Dr. Matthews REASON FOR CONSULTATION: Vomiting, risk of aspiration, abnormal chest x-ray HISTORY OF PRESENT ILLNESS: Ms. Bhat is a 70-year-old female with past medical history of diabetes mellitus, dyslipidemia, and multiple prior abdominal surgeries, who presented to the ED for evaluation of periumbilical abdominal pain after eating lunch today. Patient reportedly had nonbloody vomiting and constipation. Per family, patient is chronically constipated requiring rectal enema periodically. Patient denies chest pain, back pain, melena, hematochezia, hematemesis, cough, hemoptysis, fever, dysuria, hematuria, flank pain, slurred speech, headache, neck pain or any other symptoms. Patient is having aching/cramping abdominal pain, gradual onset, with moderate severity x1 day. Patient tested negative for COVID-19 in the ER. Patient is now admitted to the hospital and was seen in MedSurg unit. PAST MEDICAL HISTORY: Diabetes mellitus, dyslipidemia, constipation, heart valve problem (per daughter) MEDICATIONS: Atenolol, aspirin, atorvastatin, vitamin B-12, Trulicity, Synjardy, ibuprofen, linaclotide ALLERGIES: No known allergies FAMILY HISTORY: noncontributory PERSONAL/SOCIAL HISTORY: Patient denies smoking, drug use, or alcohol use REVIEW OF SYSTEMS: Negative except mentioned in HPI PHYSICAL EXAMINATION: VITAL SIGNS: Blood pressure 119/65, heart rate 82, respiratory rate 18, weight 59 kg, height 162 cm. General: Patient laying in bed with head of bed elevated, NAD HEENT: Head exam reveals that the head is normocephalic, atraumatic without deformity or unusual swelling. Pupils are PERRLA. Enteric tube through the nose CHEST AND LUNGS: Reveals clear, normal, symmetrical breath sounds with no adventitious sounds. CARDIOVASCULAR: Reveals normal S1, S2 without murmurs, rubs, or clicks. ABDOMEN: Mild tenderness on the left side RECTAL: Deferred. MUSCULOSKELETAL: There is no tenderness to palpation. Range of motion is normal. NEUROLOGICAL: Alert and oriented x3 , nonfocal LABORATORY DATA: Laboratory testing shows WBC 17.5, hematocrit 47.8. Chemistries show BUN 20, glucose 180, calcium 10.3, AST 38, lipase 70 Urinalysis shows 4+ glucose, 3+ ketones, 2+ blood, 2+ leukocyte esterase Assessment/Plan 1. UTI -Per primary MD 2. Nausea/vomiting with risk of aspiration - s/p NG tube; collecting bilious fluids -On Zofran for nausea -Monitor WBC and fever 3. Emphysematous changes on CXR -Patient denies smoking history; spoke to daughter as well who denies smoking hx -Patient is saturating well on room air; provide supplemental oxygen as needed 4. COVID-19 negative (07/28) 5. Small bowel obstruction, possibly secondary to abdominal adhesions from multiple abdominal surgical history -Slight improvement with nonoperative conservative measurement per surgeon -Due for repeat KUB tomorrow morning 6. DM with hyperglycemia - BG control; Accu-checks - per primary MD The care for this patient was discussed with my supervising physician. Time spent for this case was approximately 31 minutes. Addison Church Jul 28, 2020 15:24
[2020-07-28 16:00] VITALS: BP 126/54
[2020-07-28] MEDS ORDERED: NovoLOG Insulin Flexpen SUBQ SCH (16:30)
[2020-07-28] MEDS: NovoLOG Insulin Flexpen SUBQ SCH (17:26)
[2020-07-28 20:00] VITALS: BP 130/65
[2020-07-28] MEDS ORDERED: Atorvastatin 20mg tab ORAL SCH (21:00)
[2020-07-29] VITALS (12 sets, daily range): BP systolic 111–138; BP diastolic 58–67
[2020-07-29] MEDS: D5 1/2NS 1,000 ML IV SCH (00:20)
[2020-07-29] MEDS: NovoLOG Insulin Flexpen SUBQ SCH ×5 (05:53→23:10)
[2020-07-29] MEDS: Piperacillin/Tazobactam 3.375 GM in NS 110 ML IVPB SCH ×3 (05:56→21:38)
[2020-07-29 07:03] LABS: BASOPHILS % (AUTO) 0.4 % (0.0-2.0); HEMATOCRIT 43.6 % (37.0-47.0); HEMOGLOBIN 14.2 G/DL (12.0-16.0); MEAN CORPUSCULAR VOLUME 90 FL (80-99); NEUTROPHILS % (AUTO) 74.7 % (45.0-75.0); PLATELET COUNT 208 K/UL (150-450); RED BLOOD COUNT 4.83 M/UL (4.20-5.40); RED CELL DISTRIBUTION WIDTH 13.3 % (11.6-14.8); WHITE BLOOD COUNT 15.4 K/UL (4.8-10.8)
[2020-07-29 07:23] LABS: INR 1.7 (0.9-1.1)
[2020-07-29 07:40] LABS: ALANINE AMINOTRANSFERASE 20 U/L (12-78); ALBUMIN 3.2 G/DL (3.4-5.0); ALBUMIN/GLOBULIN RATIO 0.9 (1.0-2.7); ALKALINE PHOSPHATASE 51 U/L (46-116); AMYLASE 99 U/L (25-115); ANION GAP 11 mmol/L (5-15); ASPARTATE AMINO TRANSFERASE 20 U/L (15-37); BILIRUBIN,TOTAL 0.9 MG/DL (0.2-1.0); BLOOD UREA NITROGEN 19 mg/dL (7-18); CARBON DIOXIDE 24 MMOL/L (21-32); CHLORIDE 108 MMOL/L (98-107); CREATININE 0.6 MG/DL (0.55-1.30); POTASSIUM 3.4 MMOL/L (3.5-5.1); SODIUM 143 MMOL/L (136-145)
[2020-07-29] MEDS ORDERED: Atenolol 25mg tab ORAL SCH (09:00)
[2020-07-29] MEDS ORDERED: Linaclotide 72mcg ORAL SCH (09:00)
[2020-07-29] MEDS ORDERED: Omnipaque-300 100ml vial INJ PRN (10:30)
--- NOTE | 2020-07-29 11:41 | Surgery Progress Note ---
Surgery Progress Note Subjective Additional Comments wbc improved states pain almost resolved mild nausea with ng tube no emesis minimal ng tube output and tube checked for functionality and patency abd exam improved kub noted no flatus or BM Objective Last 24 Hour Vital Signs Date Time Temp Pulse Resp B/P (MAP) Pulse Ox O2 Delivery O2 Flow Rate FiO2 07/29/20 08:50 89 138/67 07/29/20 08:00 99.6 89 18 138/67 (90) 97 07/29/20 04:00 99.3 85 18 132/64 (86) 97 07/29/20 00:00 99.7 93 18 111/64 (80) 96 07/28/20 21:00 Room Air 07/28/20 20:00 100.1 88 18 130/65 (86) 98 07/28/20 16:00 100.3 88 18 126/54 (78) 97 07/28/20 15:01 Room Air 07/28/20 12:00 98.5 86 17 128/57 (80) 97 I&O Intake and Output 07/28/20 07/29/20 19:00 07:00 Intake Total 525 ml 979 ml Balance 525 ml 979 ml IV Total 525 ml 979 ml # Voids 1 3 Cardiovascular: RSR Respiratory: clear Abdomen: soft, flat, non-tender, present bowel sounds, non-distended, decreased bowel sounds Extremities: no edema, no tenderness, no cyanosis Laboratory Tests Test 07/28/20 12:28 07/28/20 17:23 07/28/20 20:33 07/29/20 05:35 POC Whole Blood Glucose 112 MG/DL (74-106) H 105 MG/DL (74-106) 131 MG/DL (74-106) H White Blood Count 15.4 K/UL (4.8-10.8) H Red Blood Count 4.83 M/UL (4.20-5.40) Hemoglobin 14.2 G/DL (12.0-16.0) Hematocrit 43.6 % (37.0-47.0) Mean Corpuscular Volume 90 FL (80-99) Mean Corpuscular Hemoglobin 29.5 PG (27.0-31.0) Mean Corpuscular Hemoglobin Concent 32.7 G/DL (32.0-36.0) Red Cell Distribution Width 13.3 % (11.6-14.8) Platelet Count 208 K/UL (150-450) Mean Platelet Volume 8.3 FL (6.5-10.1) Neutrophils (%) (Auto) 74.7 % (45.0-75.0) Lymphocytes (%) (Auto) 15.0 % (20.0-45.0) L Monocytes (%) (Auto) 10.0 % (1.0-10.0) Eosinophils (%) (Auto) 0.0 % (0.0-3.0) Basophils (%) (Auto) 0.4 % (0.0-2.0) Erythrocyte Sedimentation Rate 13 MM/HR (0-30) Prothrombin Time 18.1 SEC (9.30-11.50) H Prothromb Time International Ratio 1.7 (0.9-1.1) H Activated Partial Thromboplast Time 33 SEC (23-33) Sodium Level 143 MMOL/L (136-145) Potassium Level 3.4 MMOL/L (3.5-5.1) L Chloride Level 108 MMOL/L (98-107) H Carbon Dioxide Level 24 MMOL/L (21-32) Anion Gap 11 mmol/L (5-15) Blood Urea Nitrogen 19 mg/dL (7-18) H Creatinine 0.6 MG/DL (0.55-1.30) Estimat Glomerular Filtration Rate > 60 mL/min (>60) Glucose Level 118 MG/DL (74-106) H Lactic Acid Level 1.10 mmol/L (0.4-2.0) Calcium Level 8.0 MG/DL (8.5-10.1) #L Total Bilirubin 0.9 MG/DL (0.2-1.0) Aspartate Amino Transf (AST/SGOT) 20 U/L (15-37) Alanine Aminotransferase (ALT/SGPT) 20 U/L (12-78) Alkaline Phosphatase 51 U/L (46-116) C-Reactive Protein, Quantitative 8.4 mg/dL (0.00-0.90) H Total Protein 6.8 G/DL (6.4-8.2) Albumin 3.2 G/DL (3.4-5.0) L Globulin 3.6 g/dL Albumin/Globulin Ratio 0.9 (1.0-2.7) L Amylase Level 99 U/L (25-115) Lipase 44 U/L (73-393) L Test 07/29/20 05:52 POC Whole Blood Glucose 103 MG/DL (74-106) Plan Problems: (1) Diabetes (2) UTI (urinary tract infection) (3) Abdominal pain (4) Vomiting (5) Dyslipidemia (6) Upper respiratory infection (7) Small bowel obstruction Assessment & Plan: This is a 70-year-old female with history of multiple abdominal surgeries including , hysterectomy, abdominoplasty who presented with acute onset abdominal pain for 1 day with associated nausea and vomiting. Leukocytosis identified CT with small bowel obstruction transition point in the pelvis. NG tube placed patient made n.p.o. and admitted further care and management. When seen at the bedside patient states her pain is fairly better and nothing as compared to yesterday when it began. States she has not had any flatus or bowel movement today last flatus and bowel movement was early yesterday prior to worsening onset. NG tube in place with minimal output since. KUB recent after CT scan with nonobstructive bowel gas pattern. On abdominal examination she is uncomfortable when palpating the lower pelvis but the remainder of the quadrants are fairly benign. She does not look significantly distended and is fairly comfortable. Currently no nausea vomiting fever chills. CT reviewed personally and there is significant portion of the small bowel with transition point identified in the proximal portion does have significant amount of fluid noted in it with distention. She is fairly constipated as the remaining of her colon distally is full. History of chronic constipation noted as well. Given the above findings Clinical examination review of the imaging patient does have a small bowel obstruction likely to secondary to abdominal adhesions from prior surgery. She has been initiated on nonoperative conservative management and slightly improved. I do long discussion with the patient regards the findings and decision and care plan choices. We discussed operative intervention versus nonoperative. Given she is made a slight improvement in the course over the past few hours we will continue with current care plan. N.p.o. IV fluids NG tube to suction repeat KUB in the morning followed by serial abdominal examinati ons. If continues to improve and potentially resolves a potential. Otherwise I discussed care plan with patient and there is potential for requiring exploratory laparotomy. Will follow with recommendations thank you for letting present patient's care npo iv fluids trend labs CT with IV contrast ordered discussed with family and patient ng tube to low intermittent suction ct noted persistent sbo no better recommend surgery consent to or Liver: Unremarkable. Gallbladder and bile ducts: Unremarkable. Pancreas: Unremarkable. Spleen: Unremarkable. Adrenals: Unremarkable. Kidneys and ureters: Unremarkable. No obstructing stones. No hydronephrosis. Stomach and bowel: Small bowel obstruction. Transition point within the pelvis. Distention up to 3 cm. No perforation. PELVIS: Appendix: No findings to suggest acute appendicitis. Bladder: Unremarkable. Reproductive: Hysterectomy. ABDOMEN and PELVIS: Intraperitoneal space: Unremarkable. No free air. No significant fluid collection. Bones/joints: No acute fracture. Soft tissues: Unremarkable. Vasculature: Unremarkable. Lymph nodes: Unremarkable. IMPRESSION: Small bowel obstruction. Transition point within the pelvis. Distention up to 3 cm. No perforation. (8) Chest pain (9) Chest pain (10) Patellar fracture (11) Patient left without being seen (12) Knee contusion (13) Hand contusion (14) Injury of lower extremity (15) Injury of lower extremity (16) Knee abrasion Jaguar Mora Jul 29, 2020 11:41
--- NOTE | 2020-07-29 13:06 | Diagnostic Imaging Report ---
Clinical Indication: Abdominal pain Technique: Patient given enteric contrast via nasogastric tube.. IV administration nonionic contrast. Venous phase spiral acquisition obtained through the abdomen and pelvis. Multiplanar reconstructions were generated. Total dose length product 216 mGycm. CTDIvol(s) 4 mGy. Dose reduction achieved using automated exposure control Comparison: 07/28/2020 Findings: Again demonstrated are dilated fluid-filled small bowel loops. There appears to be a transition to nondilated distal in the pelvis. Extensive small bowel distention is similar to the previous study. There is a small amount of free intraperitoneal fluid, predominantly in the pelvis and over the dome of the liver, slightly increased from the previous study. There is also increasing infiltration of the pelvic fat. There is only limited forward transit of ingested contrast The appendix is normal. There is one or more colonic diverticula. No evidence of diverticulitis. No free intraperitoneal gas. No bowel wall pneumatosis. There is a nasogastric tube in place. The tip is at the level gastric antrum. The liver, gallbladder, bile ducts are unremarkable. Pancreas is atrophic. The spleen, adrenals, right kidney are unremarkable. Left kidney demonstrates subcentimeter low-attenuation lesions which are too small to characterize, most likely benign simple cysts. No pelvic mass or adenopathy. The uterus is not evident, presumably removed. There is mild edema of the subcutaneous fat. The included lung bases demonstrate dependent atelectatic changes. There is trace pleural fluid on the right. Impression: Positive for ongoing small bowel obstruction, transition point in the pelvis presumably at the level of the mid ileum. Note increasing inflammation of the pelvic fat at the transition point as well as increasing although still limited free intraperitoneal fluid. Probable colonic diverticulosis. No evidence of diverticulitis Satisfactory position of nasogastric tube Mild anasarca Trace right pleural fluid Other findings as noted, including dependent basilar atelectatic changes, prior hysterectomy, probable left renal cysts, atrophic pancreas Findings previously discussed by phone with Dr. Mora The CT scanner at [facility] is accredited by the [employer] and the scans are performed using protocols designed to limit radiation exposure to as low as reasonably achievable to attain images of sufficient resolution adequate for diagnostic evaluation.
--- NOTE | 2020-07-29 13:07 | Internal Med Progress Note ---
Subjective Physician Name López Matthews Attending Physician López Matthews M.D. Current Medications Medications (Trade) Dose Ordered Sig/Alexis Route PRN Reason Start Time Stop Time Status Last Admin Dose Admin Acetaminophen (Tylenol) 650 mg Q4H PRN ORAL Fever (temp > or = 100.4) 07/28/20 10:45 08/27/20 10:44 Acetaminophen (Tylenol) 650 mg Q4H PRN ORAL Mild Pain (Pain Scale 1-3) 07/28/20 10:45 08/27/20 10:44 Atenolol (Tenormin) 25 mg DAILY ORAL 07/29/20 09:00 08/28/20 08:59 07/29/20 08:50 Atorvastatin Calcium (Lipitor) 40 mg QHS ORAL 07/28/20 21:00 10/26/20 20:59 Barium Sulfate (Readi-Cat 2) 450 ml NOW PRN ORAL Radiology Procedure 07/29/20 10:30 07/31/20 10:29 Cetylpyridinium Chloride (Cepacol) 1 lozg Q2H PRN GILMAR SORE THROAT 07/28/20 14:30 10/26/20 14:29 Dextrose (Dextrose 50%) 25 ml Q30M PRN IV Hypoglycemia 07/28/20 11:45 10/26/20 11:44 Dextrose (Dextrose 50%) 50 ml Q30M PRN IV Hypoglycemia 07/28/20 11:45 10/26/20 11:44 Dextrose/Sodium Chloride 1,000 ml @ 75 mls/hr [id number] IV 07/28/20 11:00 08/27/20 10:59 07/29/20 00:20 Famotidine (Pepcid I.v.) 20 mg Q12HR IVP 07/28/20 21:00 08/27/20 20:59 07/29/20 08:50 Hydralazine HCl (Apresoline) 25 mg Q4H PRN ORAL SBP > 160 mm Hg 07/28/20 10:45 10/26/20 10:44 Insulin Aspart (NovoLOG) Q6HR SUBQ 07/28/20 18:00 10/26/20 17:59 Iohexol (OMNIPAQUE-300 100ml) 100 ml NOW PRN INJ Radiology Procedure 07/29/20 10:30 07/31/20 10:29 Linaclotide (Linzess) 144 mcg DAILY ORAL 07/29/20 09:00 10/27/20 08:59 07/29/20 08:51 Morphine Sulfate (Morphine Sulfate) 1 mg Q4H PRN IVP For moderate pain (4-6) 07/28/20 16:15 08/04/20 16:14 Morphine Sulfate (Morphine Sulfate) 2 mg Q4H PRN IVP For severe pain (7-10) 07/28/20 16:15 08/04/20 16:14 Non-Formulary Medication (Non-Formulary Med) 1 ea DAILY ORAL 07/29/20 09:00 08/28/20 08:59 UNV Non-Formulary Medication (Non-Formulary Med) 1 ea DAILY ORAL 07/29/20 09:00 08/28/20 08:59 UNV Non-Formulary Medication (Non-Formulary Med) 1 ea DAILY ORAL 07/29/20 09:00 08/28/20 08:59 UNV Ondansetron HCl (Zofran) 4 mg Q4H PRN IVP Nausea & Vomiting 07/28/20 10:45 08/27/20 10:44 Piperacillin Sod/ Tazobactam Sod 3.375 gm/Sodium Chloride 110 ml @ 27.5 mls/hr EVERY 8 HOURS IVPB 07/28/20 14:00 08/02/20 13:59 07/29/20 05:56 Allergies: Coded Allergies: No Known Allergies (Unverified , 06/08/19) Constitutional: Reports: weakness Gastrointestinal/Abdominal: Reports: abdomen distended Objective Last Vital Signs Date Time Temp Pulse Resp B/P (MAP) Pulse Ox O2 Delivery O2 Flow Rate FiO2 07/29/20 08:50 89 138/67 07/29/20 08:00 99.6 18 97 07/28/20 21:00 Room Air Laboratory Tests Test 07/28/20 17:23 07/28/20 20:33 07/29/20 05:35 07/29/20 05:52 POC Whole Blood Glucose 105 MG/DL (74-106) 131 MG/DL (74-106) H 103 MG/DL (74-106) White Blood Count 15.4 K/UL (4.8-10.8) H Red Blood Count 4.83 M/UL (4.20-5.40) Hemoglobin 14.2 G/DL (12.0-16.0) Hematocrit 43.6 % (37.0-47.0) Mean Corpuscular Volume 90 FL (80-99) Mean Corpuscular Hemoglobin 29.5 PG (27.0-31.0) Mean Corpuscular Hemoglobin Concent 32.7 G/DL (32.0-36.0) Red Cell Distribution Width 13.3 % (11.6-14.8) Platelet Count 208 K/UL (150-450) Mean Platelet Volume 8.3 FL (6.5-10.1) Neutrophils (%) (Auto) 74.7 % (45.0-75.0) Lymphocytes (%) (Auto) 15.0 % (20.0-45.0) L Monocytes (%) (Auto) 10.0 % (1.0-10.0) Eosinophils (%) (Auto) 0.0 % (0.0-3.0) Basophils (%) (Auto) 0.4 % (0.0-2.0) Erythrocyte Sedimentation Rate 13 MM/HR (0-30) Prothrombin Time 18.1 SEC (9.30-11.50) H Prothromb Time International Ratio 1.7 (0.9-1.1) H Activated Partial Thromboplast Time 33 SEC (23-33) Sodium Level 143 MMOL/L (136-145) Potassium Level 3.4 MMOL/L (3.5-5.1) L Chloride Level 108 MMOL/L (98-107) H Carbon Dioxide Level 24 MMOL/L (21-32) Anion Gap 11 mmol/L (5-15) Blood Urea Nitrogen 19 mg/dL (7-18) H Creatinine 0.6 MG/DL (0.55-1.30) Estimat Glomerular Filtration Rate > 60 mL/min (>60) Glucose Level 118 MG/DL (74-106) H Lactic Acid Level 1.10 mmol/L (0.4-2.0) Calcium Level 8.0 MG/DL (8.5-10.1) #L Total Bilirubin 0.9 MG/DL (0.2-1.0) Aspartate Amino Transf (AST/SGOT) 20 U/L (15-37) Alanine Aminotransferase (ALT/SGPT) 20 U/L (12-78) Alkaline Phosphatase 51 U/L (46-116) C-Reactive Protein, Quantitative 8.4 mg/dL (0.00-0.90) H Total Protein 6.8 G/DL (6.4-8.2) Albumin 3.2 G/DL (3.4-5.0) L Globulin 3.6 g/dL Albumin/Globulin Ratio 0.9 (1.0-2.7) L Amylase Level 99 U/L (25-115) Lipase 44 U/L (73-393) L Microbiology Date/Time Source Procedure Growth Status 07/28/20 00:45 Urine,Clean Catch Urine Culture - Preliminary NO GROWTH AFTER 24 HOURS Resulted 07/28/20 00:30 Blood Blood Culture - Preliminary NO GROWTH AFTER 24 HOURS Resulted 07/28/20 00:15 Blood Blood Culture - Preliminary NO GROWTH AFTER 24 HOURS Resulted 07/28/20 00:00 Nasopharynx SARS-CoV-2 Antigen (Rapid)(MICHAEL) - Final Complete Intake and Output 07/28/20 07/29/20 19:00 07:00 Intake Total 525 ml 979 ml Balance 525 ml 979 ml IV Total 525 ml 979 ml # Voids 1 3 Assessment/Plan Assessment/Plan #abd pain #nausea #SBO #diabetes # dyslipidemia #multiple previous abdominal surgeries (c section, hysterectomy) IMPRESSION: Small bowel obstruction. Transition point within the pelvis. Distention up to 3 cm. No perforation. - admit inpatient - NG placement - hold meds for now - pain control - antiemetics - NPO - general surgery eval - Bg control - López Talbot M.D. Jul 29, 2020 13:07
--- NOTE | 2020-07-29 13:07 | Pulmonology Progress Note ---
Subjective ROS Limited/Unobtainable: No Interval Events: None major reported per nursing Constitutional: Reports: fever, other - Dftf=353.1 HEENT: Repors: no symptoms Respiratory: Reports: no symptoms Cardiovascular: Reports: no symptoms Gastrointestinal/Abdominal: Reports: constipation; Denies: nausea, vomiting Genitourinary: Reports: no symptoms Allergies: Coded Allergies: No Known Allergies (Unverified , 06/08/19) Objective Last 24 Hour Vital Signs Date Time Temp Pulse Resp B/P (MAP) Pulse Ox O2 Delivery O2 Flow Rate FiO2 07/29/20 08:50 89 138/67 07/29/20 08:00 99.6 89 18 138/67 (90) 97 07/29/20 04:00 99.3 85 18 132/64 (86) 97 07/29/20 00:00 99.7 93 18 111/64 (80) 96 07/28/20 21:00 Room Air 07/28/20 20:00 100.1 88 18 130/65 (86) 98 07/28/20 16:00 100.3 88 18 126/54 (78) 97 07/28/20 15:01 Room Air Intake and Output 07/28/20 07/29/20 19:00 07:00 Intake Total 525 ml 979 ml Balance 525 ml 979 ml IV Total 525 ml 979 ml # Voids 1 3 General Appearance: no acute distress HEENT: atraumatic Respiratory: lungs clear Cardiovascular: normal rate, regular rhythm Abdomen: distended, tender Microbiology Date/Time Source Procedure Growth Status 07/28/20 00:45 Urine,Clean Catch Urine Culture - Preliminary NO GROWTH AFTER 24 HOURS Resulted 07/28/20 00:30 Blood Blood Culture - Preliminary NO GROWTH AFTER 24 HOURS Resulted 07/28/20 00:15 Blood Blood Culture - Preliminary NO GROWTH AFTER 24 HOURS Resulted 07/28/20 00:00 Nasopharynx SARS-CoV-2 Antigen (Rapid)(MICHAEL) - Final Complete Laboratory Tests 07/28/20 17:23: POC Whole Blood Glucose 105 07/28/20 20:33: POC Whole Blood Glucose 131H 07/29/20 05:35: White Blood Count 15.4H, Red Blood Count 4.83, Hemoglobin 14.2, Hematocrit 43.6, Mean Corpuscular Volume 90, Mean Corpuscular Hemoglobin 29.5, Mean Corpuscular Hemoglobin Concent 32.7, Red Cell Distribution Width 13.3, Platelet Count 208, Mean Platelet Volume 8.3, Neutrophils (%) (Auto) 74.7, Lymphocytes (%) (Auto) 15.0L, Monocytes (%) (Auto) 10.0, Eosinophils (%) (Auto) 0.0, Basophils (%) (Auto) 0.4, Erythrocyte Sedimentation Rate 13, Prothrombin Time 18.1H, Prothromb Time International Ratio 1.7H, Activated Partial Thromboplast Time 33, Sodium Level 143, Potassium Level 3.4L, Chloride Level 108H, Carbon Dioxide Level 24, Anion Gap 11, Blood Urea Nitrogen 19H, Creatinine 0.6, Estimat Glomerular Filtration Rate > 60, Glucose Level 118H, Lactic Acid Level 1.10, Calcium Level 8.0#L, Total Bilirubin 0.9, Aspartate Amino Transf (AST/SGOT) 20, Alanine Aminotransferase (ALT/SGPT) 20, Alkaline Phosphatase 51, C-Reactive Protein, Quantitative 8.4H, Total Protein 6.8, Albumin 3.2L, Globulin 3.6, Albumin/Globu obey Ratio 0.9L, Amylase Level 99, Lipase 44L 07/29/20 05:52: POC Whole Blood Glucose 103 Current Medications Medications (Trade) Dose Ordered Sig/Alexis Route PRN Reason Start Time Stop Time Status Last Admin Dose Admin Acetaminophen (Tylenol) 650 mg Q4H PRN ORAL Fever (temp > or = 100.4) 07/28/20 10:45 08/27/20 10:44 Acetaminophen (Tylenol) 650 mg Q4H PRN ORAL Mild Pain (Pain Scale 1-3) 07/28/20 10:45 08/27/20 10:44 Atenolol (Tenormin) 25 mg DAILY ORAL 07/29/20 09:00 08/28/20 08:59 07/29/20 08:50 Atorvastatin Calcium (Lipitor) 40 mg QHS ORAL 07/28/20 21:00 10/26/20 20:59 Barium Sulfate (Readi-Cat 2) 450 ml NOW PRN ORAL Radiology Procedure 07/29/20 10:30 07/31/20 10:29 Cetylpyridinium Chloride (Cepacol) 1 lozg Q2H PRN GILMAR SORE THROAT 07/28/20 14:30 10/26/20 14:29 Dextrose (Dextrose 50%) 25 ml Q30M PRN IV Hypoglycemia 07/28/20 11:45 10/26/20 11:44 Dextrose (Dextrose 50%) 50 ml Q30M PRN IV Hypoglycemia 07/28/20 11:45 10/26/20 11:44 Dextrose/Sodium Chloride 1,000 ml @ 75 mls/hr [id number] IV 07/28/20 11:00 08/27/20 10:59 07/29/20 00:20 Famotidine (Pepcid I.v.) 20 mg Q12HR IVP 07/28/20 21:00 08/27/20 20:59 07/29/20 08:50 Hydralazine HCl (Apresoline) 25 mg Q4H PRN ORAL SBP > 160 mm Hg 07/28/20 10:45 10/26/20 10:44 Insulin Aspart (NovoLOG) Q6HR SUBQ 07/28/20 18:00 10/26/20 17:59 Iohexol (OMNIPAQUE-300 100ml) 100 ml NOW PRN INJ Radiology Procedure 07/29/20 10:30 07/31/20 10:29 Linaclotide (Linzess) 144 mcg DAILY ORAL 07/29/20 09:00 10/27/20 08:59 07/29/20 08:51 Morphine Sulfate (Morphine Sulfate) 1 mg Q4H PRN IVP For moderate pain (4-6) 07/28/20 16:15 08/04/20 16:14 Morphine Sulfate (Morphine Sulfate) 2 mg Q4H PRN IVP For severe pain (7-10) 07/28/20 16:15 08/04/20 16:14 Non-Formulary Medication (Non-Formulary Med) 1 ea DAILY ORAL 07/29/20 09:00 08/28/20 08:59 UNV Non-Formulary Medication (Non-Formulary Med) 1 ea DAILY ORAL 07/29/20 09:00 08/28/20 08:59 UNV Non-Formulary Medication (Non-Formulary Med) 1 ea DAILY ORAL 07/29/20 09:00 08/28/20 08:59 UNV Ondansetron HCl (Zofran) 4 mg Q4H PRN IVP Nausea & Vomiting 07/28/20 10:45 08/27/20 10:44 Piperacillin Sod/ Tazobactam Sod 3.375 gm/Sodium Chloride 110 ml @ 27.5 mls/hr EVERY 8 HOURS IVPB 07/28/20 14:00 08/02/20 13:59 07/29/20 05:56 Assessment/Plan Assessment/Plan 1. UTI -Per primary MD 2. Nausea/vomiting with risk of aspiration - s/p NG tube; collecting bilious fluids -On Zofran for nausea -Monitor WBC and fever 3. Emphysematous changes on CXR -Patient denies smoking history; spoke to daughter as well who denies smoking hx -Patient is saturating well on room air; provide supplemental oxygen as needed 4. COVID-19 negative (07/28) 5. Small bowel obstruction, possibly secondary to abdominal adhesions from multiple abdominal surgical history -Slight improvement with nonoperative conservative measurement per surgeon -f/u imaging (07/29); management per surgery 6. DM with hyperglycemia - BG control; Accu-checks - per primary MD The care for this patient was discussed with my supervising physician. Time spent for this case was approximately 31 minutes. Addison Church Jul 29, 2020 13:07
--- NOTE | 2020-07-29 13:18 | Diagnostic Imaging Report ---
Indication: Abdominal pain Technique: Supine view of the abdomen Comparison: 07/28/2020 Findings: Proximal small bowel loops are dilated, gas-filled. There is a nasogastric tube, tip projecting at the level gastric antrum. No masses or unusual calcifications Impression: Dilated gas-filled small bowel loops, indicating ongoing small bowel obstruction Stable satisfactory nasogastric tube position
[2020-07-29] MEDS ORDERED: NeoSporin Gu Irrig 1ml Amp IRRIG ONE (13:29)
[2020-07-29] MEDS ORDERED: Bacitracin 50000 Units Vial ONE (13:29)
[2020-07-29] MEDS ORDERED: Bupivacaine w/Epi 0.25% 50ml vial INJ ONE (13:29)
[2020-07-29] MEDS ORDERED: Midazolam 2mg/2ml Inj ONE (13:38)
[2020-07-29] MEDS ORDERED: fentaNYL 100 mcg/2 mL IV ONE ×2 (13:38→16:07)
[2020-07-29] MEDS ORDERED: NS Irrig 1000ml IRRIG ONE ×4 (13:39→14:56)
[2020-07-29] MEDS ORDERED: Lidocaine 1% MPF 10mg/ml 5ml ONE (13:39)
[2020-07-29] MEDS ORDERED: LR 1000ml 1,000 ML IVLG SCH (13:45)
[2020-07-29] MEDS ORDERED: Metoclopramide 10mg/2ml Inj IVP PRN (13:45)
[2020-07-29] MEDS ORDERED: HYDROcodone/Acetamin 5/325 tab ORAL PRN (13:45)
[2020-07-29] MEDS ORDERED: Atropine Sulfate 0.4mg/ml inj IVP PRN (13:45)
[2020-07-29] MEDS ORDERED: Midazolam 2mg/2ml Inj IVP PRN (13:45)
[2020-07-29] MEDS ORDERED: DiphenhydrAMINE 50mg/ml Inj IVP PRN (13:45)
[2020-07-29] MEDS ORDERED: Labetalol 5mg/ml 20ml vial IV PRN (13:45)
[2020-07-29] MEDS ORDERED: LORazepam Inj 2mg/ml 1ml IV PRN (13:45)
[2020-07-29] MEDS ORDERED: HYDROcodone/Acetamin 7.5/325 tab ORAL PRN (13:45)
[2020-07-29] MEDS ORDERED: Hydromorphone 0.5mg/0.5ml inj IVP PRN (13:45)
[2020-07-29] MEDS ORDERED: Meperidine 25mg/1ml Inj (FOR RIGORS ONLY) IV PRN (13:45)
[2020-07-29] MEDS ORDERED: Acetaminophen (Non formulary) 100 ML IV ONE (13:45)
[2020-07-29] MEDS ORDERED: Ketorolac 30mg Inj IV PRN ×2 (13:45)
[2020-07-29] MEDS ORDERED: oxyCODONE HCL/Acetaminophen 5/325mg ORAL PRN (13:45)
[2020-07-29] MEDS ORDERED: fentaNYL 100 mcg/2 mL IV PRN (13:45)
--- NOTE | 2020-07-29 13:45 | Anethesia Preoperative Eval ---
Anesthesia Pre-op PMH/ROS General Date of Evaluation: Jul 29, 2020 Time of Evaluation: 14:01 Anesthesiologist: Alec ASA Score: ASA 3 - Emergency Mallampati Score Class I : Soft palate, uvula, fauces, pillars visible Class II: Soft palate, uvula, fauces visible Class III: Soft palate, base of uvula visible Class IV: Only hard plate visible Mallampati Classification: Class II Surgeon: Morgan Diagnosis: Abd Pain Surgical Procedure: Laparscopiic Exploratory Laparotomy Anesthesia History: none Family History: no anesthesia problems Allergies: Coded Allergies: No Known Allergies (Unverified , 06/08/19) Medications: see eMAR Patient NPO?: Yes Past Medical History Cardiovascular: Reports: HTN, other - HL Gastrointestinal/Genitourinary: Reports: GERD Endocrine: Reports: DM PSxH Narrative: Multiple Abd Sx, KEYLA, C/S Anesthesia Pre-op Phys. Exam Physician Exam Last Vital Signs Date Time Temp Pulse Resp B/P (MAP) Pulse Ox O2 Delivery O2 Flow Rate FiO2 07/29/20 08:50 89 138/67 07/29/20 08:00 99.6 18 97 07/28/20 21:00 Room Air Constitutional: NAD Neurologic: CN 2-12 intact Cardiovascular: RRR Respiratory: CTA Gastrointestinal: S/NT/ND Airway Exam Mallampati Score: Class II MO: full ROM: limited Teeth: missing, intact Anesthesia Pre-op A/P Labs Hematology Test 07/29/20 05:35 White Blood Count 15.4 K/UL (4.8-10.8) H Red Blood Count 4.83 M/UL (4.20-5.40) Hemoglobin 14.2 G/DL (12.0-16.0) Hematocrit 43.6 % (37.0-47.0) Mean Corpuscular Volume 90 FL (80-99) Mean Corpuscular Hemoglobin 29.5 PG (27.0-31.0) Mean Corpuscular Hemoglobin Concent 32.7 G/DL (32.0-36.0) Red Cell Distribution Width 13.3 % (11.6-14.8) Platelet Count 208 K/UL (150-450) Mean Platelet Volume 8.3 FL (6.5-10.1) Neutrophils (%) (Auto) 74.7 % (45.0-75.0) Lymphocytes (%) (Auto) 15.0 % (20.0-45.0) L Monocytes (%) (Auto) 10.0 % (1.0-10.0) Eosinophils (%) (Auto) 0.0 % (0.0-3.0) Basophils (%) (Auto) 0.4 % (0.0-2.0) Erythrocyte Sedimentation Rate 13 MM/HR (0-30) Coagulation Test 07/29/20 05:35 Prothrombin Time 18.1 SEC (9.30-11.50) H Prothromb Time International Ratio 1.7 (0.9-1.1) H Activated Partial Thromboplast Time 33 SEC (23-33) Chemistry Test 07/28/20 17:23 07/28/20 20:33 07/29/20 05:35 07/29/20 05:52 POC Whole Blood Glucose 105 MG/DL (74-106) 131 MG/DL (74-106) H 103 MG/DL (74-106) Sodium Level 143 MMOL/L (136-145) Potassium Level 3.4 MMOL/L (3.5-5.1) L Chloride Level 108 MMOL/L (98-107) H Carbon Dioxide Level 24 MMOL/L (21-32) Anion Gap 11 mmol/L (5-15) Blood Urea Nitrogen 19 mg/dL (7-18) H Creatinine 0.6 MG/DL (0.55-1.30) Estimat Glomerular Filtration Rate > 60 mL/min (>60) Glucose Level 118 MG/DL (74-106) H Lactic Acid Level 1.10 mmol/L (0.4-2.0) Calcium Level 8.0 MG/DL (8.5-10.1) #L Total Bilirubin 0.9 MG/DL (0.2-1.0) Aspartate Amino Transf (AST/SGOT) 20 U/L (15-37) Alanine Aminotransferase (ALT/SGPT) 20 U/L (12-78) Alkaline Phosphatase 51 U/L (46-116) C-Reactive Protein, Quantitative 8.4 mg/dL (0.00-0.90) H Total Protein 6.8 G/DL (6.4-8.2) Albumin 3.2 G/DL (3.4-5.0) L Globulin 3.6 g/dL Albumin/Globulin Ratio 0.9 (1.0-2.7) L Amylase Level 99 U/L (25-115) Lipase 44 U/L (73-393) L Risk Assessment & Plan Assessment: ASA 3E Plan: GA, SED, GlideScope Status Change Before Surgery: No Pre-Antibiotics Dru Gram Ancef IV Given Within 1 Hr of Incision: Yes Time Given: 14:26 Daniele Michael MD Jul 29, 2020 13:45
[2020-07-29] MEDS ORDERED: NS Irrig 1000ml ONE (14:00)
[2020-07-29] MEDS ORDERED: LR 1000ml ONE (14:00)
[2020-07-29] MEDS ORDERED: Sterile Water Irrig 1000ml IRRIG ONE (14:00)
[2020-07-29] MEDS ORDERED: Rocuronium Bromide 50mg/5ml Inj IV ONE (14:00)
--- NOTE | 2020-07-29 14:55 | Immediate Post-Op Evaluation ---
Immediate Post-Op Evalulation Immediate Post-Op Evalulation Procedure: Exp Lap, Resect Small Bowel Date of Evaluation: Jul 29, 2020 Time of Evaluation: 17:18 IV Fluids: 1000 LR Blood Products: 0 Estimated Blood Loss: 50 Urinary Output: 250 Blood Pressure Systolic: 131 Blood Pressure Diastolic: 63 Pulse Rate: 96 Respiratory Rate: 16 O2 Sat by Pulse Oximetry: 99 Temperature (Fahrenheit): 99.7 Pain Score (1-10): 2 Nausea: No Vomiting: No Complications 0 Patient Status: awake, reacts, patent, extubated, none Hydration Status: adequate Dru Gram Ancef IV Given Within 1 Hr of Incision: Yes Time Given: 14:26 Daniele Michael MD Jul 29, 2020 14:55
--- NOTE | 2020-07-29 14:56 | 48 Hour Post Anesthesia Eval ---
Post Anesthesia Evaluation Procedure: Exp Lap Date of Evaluation: Jul 29, 2020 Time of Evaluation: 19:34 Blood Pressure Systolic: 127 0: 72 Pulse Rate: 84 Respiratory Rate: 18 Temperature (Fahrenheit): 98.6 O2 Sat by Pulse Oximetry: 98 Airway: patent Nausea: No Vomiting: No Mental Status/LOC: patient returned to baseline Follow-up Care/Observations: 0 Post-Anesthesia Complications: 0 Follow-up care needed: N/A Daniele Micheal MD Jul 29, 2020 14:56
--- NOTE | 2020-07-29 17:23 | Pre-Procedure Note/Attestation ---
Pre-Procedure Note/Attestation Complete Prior to Procedure Procedure Narrative: sbo Indications for Procedure Pre-Operative Diagnosis: Diagnostic laparoscopy possible exploratory laparotomy with a possible bowel resection possible ostomy Attestation I attest that I discussed the nature of the procedure; its benefits; risks and complications; and alternatives (and the risks and benefits of such alternatives), prior to the procedure, with the patient (or the patient's legal representative phlebotomy services). I attest that, if there was a reasonable possibility of needing a blood transfusion, the patient (or the patient's legal representative phlebotomy services) was given the [facility] standardized written summary, pursuant to the [place] Blood Safety Act ([place] Health and Safety Code # 1645, as amended). I attest that I re-evaluated the patient just prior to the surgery and that there has been no change in the patient's H&P, except as documented below: Jaguar Mora Jul 29, 2020 17:23
--- NOTE | 2020-07-29 17:24 | Brief Operative Note ---
Immediate Post Operative Note Operative Note Pre-op Diagnosis: Small bowel obstruction Procedure: 1 diagnostic laparoscopy 2 laparoscopic assisted small bowel resection 3 extensive laparoscopic lysis of adhesions For abdominal washout and closure Post-op Diagnosis: same as pre-op Surgeon: Jaguar Mora MD Anesthesiologist: Daniele Michael Anesthesia: general, local Specimen: yes Complications: none Condition: stable Fluids: See records Estimated Blood Loss: minimal Drains: none Implant(s) used?: No Jaguar Mora Jul 29, 2020 17:24
[2020-07-29] MEDS ORDERED: Acetaminophen 650 MG SUPP RECTAL PRN (17:30)
[2020-07-29] MEDS: D5 1/2NS w/KCl 20mEq 1,000 ML IV SCH (19:28)
--- NOTE | 2020-07-29 20:44 | Operative Note - Dictated ---
DATE OF OPERATION: 07/29/2020 PREOPERATIVE DIAGNOSIS: 1. Small bowel obstruction. POSTOPERATIVE DIAGNOSES: 1. Small bowel obstruction. 2. Dense intra-abdominal adhesions. OPERATION PERFORMED: 1. Diagnostic laparoscopy. 2. Laparoscopic-assisted small bowel resection. 3. Extensive laparoscopic lysis of adhesions. 4. Abdominal washout and closure. ATTENDING SURGEON: Jaguar Mora MD. RESTAURANT ASSOCIATE: None. ANESTHESIOLOGIST: Daniele Michael MD. ANESTHESIA: GETA plus local. ESTIMATED BLOOD LOSS: Minimal. IV FLUIDS: Please see anesthesia records. COMPLICATIONS: None. DRAINS: None. SPECIMEN: Small bowel. WOUND CLASSIFICATION: Class 3. ANTIBIOTICS: The patient is on scheduled IV antibiotics. COUNT: Sponge and needle count correct x2. INDICATIONS FOR PROCEDURE: This 70-year-old female presented to [facility] with acute onset of abdominal pain. CT of abdomen and pelvis showed a small bowel obstruction with transition point in the pelvis. The patient had a leukocytosis but labs are otherwise benign and abdominal pain slowly began to improve. She was admitted for conservative management. NG tube placed. NPO, IV fluids and monitored over the course of the next 24 to 48 hours where clinically she improved, but no return of bowel function. Repeat CT was performed with contrast identifying similar findings without significant improvement over the course of 48 hours, therefore conservative management failed and surgery was recommended and indicated. A long discussion was had with the patient and her family regarding surgical intervention including the risks, benefits and alternatives. We discussed laparoscopic versus open and all potential intraoperative findings and care plans. Consent was obtained. The patient was taken to the operating room on 07/29/2020. OPERATIVE NOTE: The patient was taken to the operating room and placed on the operating table in supine position with bilateral arms out. All bony prominences were well padded. SCDs were placed. Preoperative time-out was taken identifying the patient, procedure, operative staff, and surgical staff. General anesthesia was induced and the patient was intubated. Billings catheter was inserted using standard sterile technique. The abdomen was clipped, prepped, and draped in standard surgical fashion. Given the patient had a prior abdominoplasty, incision looked like a reimplantation of the umbilicus, a decision was made to go supraumbilically. Local anesthetic was infiltrated and a supraumbilical incision was made and carried down through subcutaneous tissue. Umbilicus was elevated. Fascia was identified and incised and entry into the abdomen was obtained using the open Laurel technique. Upon entry into the abdomen using the open Laurel, it was clearly identifiable there were significant omental adhesions to the anterior abdominal peritoneal lining. Gentle finger dissection was performed and laparoscopic trocar was inserted. The abdomen was insufflated and the patient tolerated the insufflation well. Laparoscope was inserted and there were dense adhesions to the omentum identified into the pelvis and left lower quadrant. Secondary trocars were placed under direct visualization beginning with the right mid abdomen 5 mm followed by left mid abdomen 5 mm, which was later up-sized to 12 mm. Laparoscopic instruments were used, sharp gentle laparoscopic lysis of adhesions was performed for approximately an hour until omental adhesions taken down from the anterior abdominal wall and the pelvis could be identifiable. The omentum, once I dissected free, was placed into the left upper quadrant. The remaining portions of the abdomen was then inspected. The right upper quadrant and liver with blunted edges, otherwise benign, gallbladder otherwise benign, left lower quadrant benign, as well as stomach with NG tube in place. Portions of the small bowel and large bowel could be identified and were noted. The small bowel was clearly identifiable to having an obstruction process ongoing as there was distended fluid-filled bowel as well as lying perpendicular to it some completely decompressed normal-appearing bowel. The transition point was tracked down towards the pelvis and was clearly identified that there was a distended dilated fluid-filled bowel loop in the pelvis, followed by completely decompressed loop coming out of the pelvis. A gentle lysis of adhesions was performed until the pelvic window, inlet was slowly gently opened and the bowel was brought into the operative field after continuous adhesions were dissected out. Interloop adhesion was identified with a loop of bowel going through and causing the obstructive process. The adhesion was cut and the bowel was freed and the obstructive process was freed. The proximal and distal end had a ring of tissue that was considered to be nonviable and high risk for stricture formation or even perforation given the way it looked circumferential and concerning. The bowel that was obstructed did slowly start to pink up but concerning and areas of the rings around the inlet and outlet were concerning as they stayed and remained fairly white and concerning for obstructive stricture in the future or even compromised potential perforation site. At this time, a decision was made to perform a small bowel resection. The bowel was prepped by identifying the proximal and distal end for resection. A window was made in the mesentery followed by dissection of the V-shaped portion of mesentery using a Thunderbeat energy device. Following this, given the size of the bowel and the decompressed nature after the obstruction was resolved, assisted method was utilized by bringing the bowel out of the portion of the 12 mm Laurel port site. It was mildly extended to allow for opening. The bowel was brought through. Subcutaneous suture was placed around the mesentery edge at the level of the anastomosis. Enterotomy was made proximally and distally and a linear 55 mm stapler was inserted and fired and appropriate [id number] anastomosis was made. No bleeding or abnormality was identified. Lastly, a linear stapler was then used and the remaining defect was closed followed by interrupted 3-0 Lembert sutures for reinforcement. Mesentery defect was reapproximated using interrupted 3-0 silk sutures. Good hemostasis was noted. Patent anastomosis identified, no leakage. Bowel contents were passed through. The bowel was allowed to fall back into the abdomen. The abdomen was irrigated and suctioned clean with laparoscopic irrigation suction. Once this was completed, the abdomen was inspected. Good hemostasis, no bleeding, and no other abnormalities were identified. All adhesions have been taken down. At this time, we began conclusion of our procedure. The supraumbilical incision was reapproximated using #0 PDS suture followed by reapproximation of the left abdominal port site using a [id number] 0 Vicryl suture, and reapproximation of skin incisions using 4-0 Monocryl subcuticular interrupted sutures. Wounds were cleaned, benzoin and Steri-Strips applied followed by dressings. The patient tolerated the procedure well, was extubated and taken to postanesthetic care in stable condition. Jaguar Mora M.D. DR: Mirta JOB#: [id number] CC: MARIO
[2020-07-30] VITALS: BP 112/55
[2020-07-30 04:00] VITALS: BP 117/81
[2020-07-30] MEDS: Piperacillin/Tazobactam 3.375 GM in NS 110 ML IVPB SCH ×3 (05:27→21:21)
[2020-07-30] MEDS: NovoLOG Insulin Flexpen SUBQ SCH ×3 (05:47→18:00)
[2020-07-30] MEDS: D5 1/2NS w/KCl 20mEq 1,000 ML IV SCH ×2 (05:47→14:29)
[2020-07-30 06:32] LABS: BASOPHILS % (AUTO) 0.2 % (0.0-2.0); HEMATOCRIT 40.8 % (37.0-47.0); HEMOGLOBIN 13.3 G/DL (12.0-16.0); LYMPHOCYTES % (AUTO) 13.4 % (20.0-45.0); MEAN CORPUSCULAR VOLUME 92 FL (80-99); MONOCYTES % (AUTO) 7.1 % (1.0-10.0); NEUTROPHILS % (AUTO) 79.3 % (45.0-75.0); PLATELET COUNT 207 K/UL (150-450); RED BLOOD COUNT 4.44 M/UL (4.20-5.40); RED CELL DISTRIBUTION WIDTH 13.7 % (11.6-14.8); WHITE BLOOD COUNT 13.7 K/UL (4.8-10.8)
[2020-07-30 07:12] LABS: ALANINE AMINOTRANSFERASE 14 U/L (12-78); ALBUMIN 2.6 G/DL (3.4-5.0); ALBUMIN/GLOBULIN RATIO 0.7 (1.0-2.7); ALKALINE PHOSPHATASE 51 U/L (46-116); ANION GAP 11 mmol/L (5-15); ASPARTATE AMINO TRANSFERASE 26 U/L (15-37); BILIRUBIN,TOTAL 0.7 MG/DL (0.2-1.0); BLOOD UREA NITROGEN 17 mg/dL (7-18); CALCIUM 7.8 MG/DL (8.5-10.1); CARBON DIOXIDE 23 MMOL/L (21-32); CHLORIDE 113 MMOL/L (98-107); CREATININE 0.6 MG/DL (0.55-1.30); POTASSIUM 3.9 MMOL/L (3.5-5.1); SODIUM 147 MMOL/L (136-145)
[2020-07-30 08:00] VITALS: BP 119/59
[2020-07-30] MEDS: Morphine Sulfate 4mg/ml Inj (IV USE ONLY) IVP PRN (08:28)
--- NOTE | 2020-07-30 10:16 | Surgery Progress Note ---
Surgery Progress Note Subjective Procedure Performed 1 diagnostic laparoscopy 2 laparoscopic assisted small bowel resection 3 extensive laparoscopic lysis of adhesions For abdominal washout and closure Additional Comments doing well post op Objective Last 24 Hour Vital Signs Date Time Temp Pulse Resp B/P (MAP) Pulse Ox O2 Delivery O2 Flow Rate FiO2 07/30/20 09:00 Room Air 07/30/20 08:58 98.1 07/30/20 08:00 97.2 81 18 119/59 (79) 100 07/30/20 04:00 98.1 106 20 117/81 (93) 99 07/30/20 00:00 97.6 78 20 112/55 (74) 97 07/29/20 21:00 Room Air 07/29/20 20:00 97.7 78 20 121/64 (83) 100 78 07/29/20 18:00 98.1 85 20 116/61 (79) 100 07/29/20 17:50 98.2 81 18 117/58 100 Nasal Cannula 3 07/29/20 17:35 87 15 124/59 100 Nasal Cannula 3 07/29/20 17:20 86 22 124/59 99 Simple Mask 6 07/29/20 17:10 91 17 120/66 98 Simple Mask 6 07/29/20 17:05 96 17 124/61 98 Simple Mask 6 07/29/20 17:02 84 18 98 07/29/20 17:01 96 16 99 07/29/20 17:00 99.7 96 16 131/63 99 Simple Mask 6 07/29/20 12:00 99.1 87 20 135/65 (88) 96 I&O Intake and Output 07/29/20 07/30/20 19:00 07:00 Intake Total 1100 ml 1110.0 ml Output Total 300 ml 1200 ml Balance 800 ml -90.0 ml IV Total 1100 ml 1110.0 ml Output Urine Total 250 ml 1200 ml Estimated Blood Loss 50 ml Dressing: dry Wound: clean Cardiovascular: RSR Respiratory: clear Abdomen: soft, flat, tenderness, decreased bowel sounds Extremities: no edema, no tenderness, no cyanosis Laboratory Tests Test 07/29/20 23:09 07/30/20 05:45 07/30/20 05:47 POC Whole Blood Glucose Pending Pending White Blood Count 13.7 K/UL (4.8-10.8) H Red Blood Count 4.44 M/UL (4.20-5.40) Hemoglobin 13.3 G/DL (12.0-16.0) Hematocrit 40.8 % (37.0-47.0) Mean Corpuscular Volume 92 FL (80-99) Mean Corpuscular Hemoglobin 30.0 PG (27.0-31.0) Mean Corpuscular Hemoglobin Concent 32.7 G/DL (32.0-36.0) Red Cell Distribution Width 13.7 % (11.6-14.8) Platelet Count 207 K/UL (150-450) Mean Platelet Volume 8.4 FL (6.5-10.1) Neutrophils (%) (Auto) 79.3 % (45.0-75.0) H Lymphocytes (%) (Auto) 13.4 % (20.0-45.0) L Monocytes (%) (Auto) 7.1 % (1.0-10.0) Eosinophils (%) (Auto) 0.0 % (0.0-3.0) Basophils (%) (Auto) 0.2 % (0.0-2.0) Prothrombin Time 11.1 SEC (9.30-11.50) Prothromb Time International Ratio 1.0 (0.9-1.1) Activated Partial Thromboplast Time 26 SEC (23-33) Sodium Level 147 MMOL/L (136-145) H Potassium Level 3.9 MMOL/L (3.5-5.1) Chloride Level 113 MMOL/L (98-107) H Carbon Dioxide Level 23 MMOL/L (21-32) Anion Gap 11 mmol/L (5-15) Blood Urea Nitrogen 17 mg/dL (7-18) Creatinine 0.6 MG/DL (0.55-1.30) Estimat Glomerular Filtration Rate > 60 mL/min (>60) Glucose Level 144 MG/DL (74-106) H Calcium Level 7.8 MG/DL (8.5-10.1) L Total Bilirubin 0.7 MG/DL (0.2-1.0) Aspartate Amino Transf (AST/SGOT) 26 U/L (15-37) Alanine Aminotransferase (ALT/SGPT) 14 U/L (12-78) Alkaline Phosphatase 51 U/L (46-116) Total Protein 6.1 G/DL (6.4-8.2) L Albumin 2.6 G/DL (3.4-5.0) L Globulin 3.5 g/dL Albumin/Globulin Ratio 0.7 (1.0-2.7) L Plan Problems: (1) Diabetes (2) UTI (urinary tract infection) (3) Abdominal pain (4) Vomiting (5) Dyslipidemia (6) Upper respiratory infection (7) Small bowel obstruction Assessment & Plan: This is a 70-year-old female with history of multiple abdominal surgeries including , hysterectomy, abdominoplasty who presented with acute onset abdominal pain for 1 day with associated nausea and vomiting. Leukocytosis identified CT with small bowel obstruction transition point in the pelvis. NG tube placed patient made n.p.o. and admitted further care and management. When seen at the bedside patient states her pain is fairly better and nothing as compared to yesterday when it began. States she has not had any flatus or bowel movement today last flatus and bowel movement was early yesterday prior to worsening onset. NG tube in place with minimal output since. KUB recent after CT scan with nonobstructive bowel gas pattern. On abdominal examination she is uncomfortable when palpating the lower pelvis but the remainder of the quadrants are fairly benign. She does not look significantly distended and is fairly comfortable. Currently no nausea vomiting fever chills. CT reviewed personally and there is significant portion of the small bowel with transition point identified in the proximal portion does have significant amount of fluid noted in it with distention. She is fairly constipated as the remaining of her colon distally is full. History of chronic constipation noted as well. Given the above findings Clinical examination review of the imaging patient does have a small bowel obstruction likely to secondary to abdominal adhesions from prior surgery. She has been initiated on nonoperative conservative management and slightly improved. I do long discussion with the patient regards the findings and decision and care plan choices. We discussed operative intervention versus nonoperative. Given she is made a slight improvement in the course over the past few hours we will continue with current care plan. N.p.o. IV fluids NG tube to suction repeat KUB in the morning followed by serial abdominal examinations. If continues to improve and potentially resolves a potential. Otherwise I discussed care plan with patient and there is potential for requiring exploratory laparotomy. Will follow with recommendations thank you for letting present patient's care npo iv fluids trend labs CT with IV contrast ordered discussed with family and patient ng tube to low intermittent suction ct noted persistent sbo no better recommend surgery consent to or Liver: Unremarkable. Gallbladder and bile ducts: Unremarkable. Pancreas: Unremarkable. Spleen: Unremarkable. Adrenals: Unremarkable. Kidneys and ureters: Unremarkable. No obstructing stones. No hydronephrosis. Stomach and bowel: Small bowel obstruction. Transition point within the pelvis. Distention up to 3 cm. No perforation. PELVIS: Appendix: No findings to suggest acute appendicitis. Bladder: Unremarkable. Reproductive: Hysterectomy. ABDOMEN and PELVIS: Intraperitoneal space: Unremarkable. No free air. No significant fluid collection. Bones/joints: No acute fracture. Soft tissues: Unremarkable. Vasculature: Unremarkable. Lymph nodes: Unremarkable. IMPRESSION: Small bowel obstruction. Transition point within the pelvis. Distention up to 3 cm. No perforation. s/p lap sb resection wayne doing well recovering (8) Chest pain (9) Chest pain (10) Patellar fracture (11) Patient left without being seen (12) Knee contusion (13) Hand contusion (14) Injury of lower extremity (15) Injury of lower extremity (16) Knee abrasion Jaguar Mora Jul 30, 2020 10:16
--- NOTE | 2020-07-30 11:40 | Pulmonology Progress Note ---
Subjective ROS Limited/Unobtainable: No Interval Events: None major reported per nursing Constitutional: Reports: fever, other - Lrtl=114.1 HEENT: Repors: no symptoms Respiratory: Reports: no symptoms Cardiovascular: Reports: no symptoms Gastrointestinal/Abdominal: Reports: constipation; Denies: nausea, vomiting Genitourinary: Reports: no symptoms Allergies: Coded Allergies: No Known Allergies (Unverified , 06/08/19) Objective Last 24 Hour Vital Signs Date Time Temp Pulse Resp B/P (MAP) Pulse Ox O2 Delivery O2 Flow Rate FiO2 07/30/20 09:00 Room Air 07/30/20 08:58 98.1 07/30/20 08:00 97.2 81 18 119/59 (79) 100 07/30/20 04:00 98.1 106 20 117/81 (93) 99 07/30/20 00:00 97.6 78 20 112/55 (74) 97 07/29/20 21:00 Room Air 07/29/20 20:00 97.7 78 20 121/64 (83) 100 78 07/29/20 18:00 98.1 85 20 116/61 (79) 100 07/29/20 17:50 98.2 81 18 117/58 100 Nasal Cannula 3 07/29/20 17:35 87 15 124/59 100 Nasal Cannula 3 07/29/20 17:20 86 22 124/59 99 Simple Mask 6 07/29/20 17:10 91 17 120/66 98 Simple Mask 6 07/29/20 17:05 96 17 124/61 98 Simple Mask 6 07/29/20 17:02 84 18 98 07/29/20 17:01 96 16 99 07/29/20 17:00 99.7 96 16 131/63 99 Simple Mask 6 07/29/20 12:00 99.1 87 20 135/65 (88) 96 Intake and Output 07/29/20 07/30/20 19:00 07:00 Intake Total 1100 ml 1110.0 ml Output Total 300 ml 1200 ml Balance 800 ml -90.0 ml IV Total 1100 ml 1110.0 ml Output Urine Total 250 ml 1200 ml Estimated Blood Loss 50 ml General Appearance: no acute distress HEENT: atraumatic Respiratory: lungs clear Cardiovascular: normal rate, regular rhythm Abdomen: distended, tender Microbiology Date/Time Source Procedure Growth Status 07/28/20 00:45 Urine,Clean Catch Urine Culture - Final Mixed Gram Positive Organism Complete 07/28/20 00:30 Blood Blood Culture - Preliminary NO GROWTH AFTER 48 HOURS Resulted 07/28/20 00:15 Blood Blood Culture - Preliminary NO GROWTH AFTER 48 HOURS Resulted 07/28/20 00:00 Nasopharynx SARS-CoV-2 Antigen (Rapid)(MICHAEL) - Final Complete Laboratory Tests 07/29/20 23:09: POC Whole Blood Glucose [Pending] 07/30/20 05:45: White Blood Count 13.7H, Red Blood Count 4.44, Hemoglobin 13.3, Hematocrit 40.8, Mean Corpuscular Volume 92, Mean Corpuscular Hemoglobin 30.0, Mean Corpuscular Hemoglobin Concent 32.7, Red Cell Distribution Width 13.7, Platelet Count 207, Mean Platelet Volume 8.4, Neutrophils (%) (Auto) 79.3H, Lymphocytes (%) (Auto) 13.4L, Monocytes (%) (Auto) 7.1, Eosinophils (%) (Auto) 0.0, Basophils (%) (Auto) 0.2, Prothrombin Time 11.1, Prothromb Time International Ratio 1.0, A ctivated Partial Thromboplast Time 26, Sodium Level 147H, Potassium Level 3.9, Chloride Level 113H, Carbon Dioxide Level 23, Anion Gap 11, Blood Urea Nitrogen 17, Creatinine 0.6, Estimat Glomerular Filtration Rate > 60, Glucose Level 144H, Calcium Level 7.8L, Total Bilirubin 0.7, Aspartate Amino Transf (AST/SGOT) 26, Alanine Aminotransferase (ALT/SGPT) 14, Alkaline Phosphatase 51, Total Protein 6.1L, Albumin 2.6L, Globulin 3.5, Albumin/Globulin Ratio 0.7L 07/30/20 05:47: POC Whole Blood Glucose [Pending] Current Medications Medications (Trade) Dose Ordered Sig/Alexis Route PRN Reason Start Time Stop Time Status Last Admin Dose Admin Acetaminophen (Tylenol) 650 mg Q4H PRN RECTAL FEVER 07/29/20 17:30 08/28/20 17:29 Barium Sulfate (Readi-Cat 2) 450 ml NOW PRN ORAL Radiology Procedure 07/29/20 10:30 07/31/20 10:29 Cetylpyridinium Chloride (Cepacol) 1 lozg Q2H PRN GILMAR SORE THROAT 07/28/20 14:30 10/26/20 14:29 Dextrose (Dextrose 50%) 25 ml Q30M PRN IV Hypoglycemia 07/28/20 11:45 10/26/20 11:44 Dextrose (Dextrose 50%) 50 ml Q30M PRN IV Hypoglycemia 07/28/20 11:45 10/26/20 11:44 Dextrose/ Electrolytes 1,000 ml @ 100 mls/hr Q10H IV 07/29/20 18:30 08/28/20 18:29 07/29/20 19:28 Diphenhydramine HCl (Benadryl) 12.5 mg Q6H PRN IVP Itching/Pruritis 07/29/20 17:30 08/28/20 17:29 Famotidine (Pepcid I.v.) 20 mg Q12HR IVP 07/28/20 21:00 08/27/20 20:59 07/30/20 08:28 Insulin Aspart (NovoLOG) Q6HR SUBQ 07/28/20 18:00 10/26/20 17:59 Morphine Sulfate (Morphine Sulfate) 4 mg Q4H PRN IVP pain score 7-10 07/29/20 17:30 08/05/20 17:29 07/30/20 08:28 Non-Formulary Medication (Non-Formulary Med) 1 ea DAILY ORAL 07/29/20 09:00 08/28/20 08:59 UNV Non-Formulary Medication (Non-Formulary Med) 1 ea DAILY ORAL 07/29/20 09:00 08/28/20 08:59 UNV Ondansetron HCl (Zofran) 4 mg Q4H PRN IVP Nausea & Vomiting 07/28/20 10:45 08/27/20 10:44 07/30/20 08:37 Piperacillin Sod/ Tazobactam Sod 3.375 gm/Sodium Chloride 110 ml @ 27.5 mls/hr EVERY 8 HOURS IVPB 07/28/20 14:00 08/02/20 13:59 07/30/20 05:27 Assessment/Plan Assessment/Plan 1. UTI 2. Emphysematous changes on CXR -Patient denies smoking history; spoke to daughter as well who denies smoking hx -Patient is saturating well on room air; provide supplemental oxygen as needed 3. COVID-19 negative (07/28) 4. Small bowel obstruction, continue nonoperative conservative measurement per surgery 6. DM with hyperglycemia - BG control; Accu-checks Sean Prince MD Jul 30, 2020 11:40
[2020-07-30 12:00] VITALS: BP 119/54
--- NOTE | 2020-07-30 14:14 | Internal Med Progress Note ---
Subjective Physician Name López Matthews Attending Physician López Matthews M.D. Current Medications Medications (Trade) Dose Ordered Sig/Alexis Route PRN Reason Start Time Stop Time Status Last Admin Dose Admin Acetaminophen (Tylenol) 650 mg Q4H PRN RECTAL FEVER 07/29/20 17:30 08/28/20 17:29 Barium Sulfate (Readi-Cat 2) 450 ml NOW PRN ORAL Radiology Procedure 07/29/20 10:30 07/31/20 10:29 Cetylpyridinium Chloride (Cepacol) 1 lozg Q2H PRN GILMAR SORE THROAT 07/28/20 14:30 10/26/20 14:29 Dextrose (Dextrose 50%) 25 ml Q30M PRN IV Hypoglycemia 07/28/20 11:45 10/26/20 11:44 Dextrose (Dextrose 50%) 50 ml Q30M PRN IV Hypoglycemia 07/28/20 11:45 10/26/20 11:44 Dextrose/ Electrolytes 1,000 ml @ 100 mls/hr Q10H IV 07/29/20 18:30 08/28/20 18:29 07/29/20 19:28 Diphenhydramine HCl (Benadryl) 12.5 mg Q6H PRN IVP Itching/Pruritis 07/29/20 17:30 08/28/20 17:29 Famotidine (Pepcid I.v.) 20 mg Q12HR IVP 07/28/20 21:00 08/27/20 20:59 07/30/20 08:28 Insulin Aspart (NovoLOG) Q6HR SUBQ 07/28/20 18:00 10/26/20 17:59 Morphine Sulfate (Morphine Sulfate) 4 mg Q4H PRN IVP pain score 7-10 07/29/20 17:30 08/05/20 17:29 07/30/20 08:28 Non-Formulary Medication (Non-Formulary Med) 1 ea DAILY ORAL 07/29/20 09:00 08/28/20 08:59 UNV Non-Formulary Medication (Non-Formulary Med) 1 ea DAILY ORAL 07/29/20 09:00 08/28/20 08:59 UNV Ondansetron HCl (Zofran) 4 mg Q4H PRN IVP Nausea & Vomiting 07/28/20 10:45 08/27/20 10:44 07/30/20 08:37 Piperacillin Sod/ Tazobactam Sod 3.375 gm/Sodium Chloride 110 ml @ 27.5 mls/hr EVERY 8 HOURS IVPB 07/28/20 14:00 08/02/20 13:59 07/30/20 05:27 Allergies: Coded Allergies: No Known Allergies (Unverified , 06/08/19) ROS Limited/Unobtainable: No Constitutional: Reports: weakness HEENT: Denies: no symptoms, eye pain, blurred vision, tearing, double vision, ear pain, ear discharge, nose pain, nose congestion, throat pain, throat swelling, mouth pain, mouth swelling, other Cardiovascular: Denies: no symptoms, chest pain, edema, irregular heart rate, lightheadedness, palpitations, syncope, other Respiratory: Denies: no symptoms, cough, orthopnea, shortness of breath, SOB with excertion, SOB at rest, sputum, stridor, wheezing, other Gastrointestinal/Abdominal: Reports: abdominal pain Genitourinary: Denies: no symptoms, burning, discharge, frequency, flank pain, hematuria, incontinence, pain, urgency, other Neurologic/Psychiatric: Denies: no symptoms, anxiety, depressed, emotional problems, headache, numbness, paresthesia, pre-existing deficit, seizure, tingling, tremors, weakness, other Subjective 1 diagnostic laparoscopy 2 laparoscopic assisted small bowel resection 3 extensive laparoscopic lysis of adhesions For abdominal washout and closure pain controlled doing well Objective Last Vital Signs Date Time Temp Pulse Resp B/P (MAP) Pulse Ox O2 Delivery O2 Flow Rate FiO2 07/30/20 12:00 97.8 89 18 119/54 (75) 99 07/30/20 09:00 Room Air 07/29/20 17:50 3 Laboratory Tests Test 07/29/20 23:09 07/30/20 05:45 07/30/20 05:47 POC Whole Blood Glucose Pending Pending White Blood Count 13.7 K/UL (4.8-10.8) H Red Blood Count 4.44 M/UL (4.20-5.40) Hemoglobin 13.3 G/DL (12.0-16.0) Hematocrit 40.8 % (37.0-47.0) Mean Corpuscular Volume 92 FL (80-99) Mean Corpuscular Hemoglobin 30.0 PG (27.0-31.0) Mean Corpuscular Hemoglobin Concent 32.7 G/DL (32.0-36.0) Red Cell Distribution Width 13.7 % (11.6-14.8) Platelet Count 207 K/UL (150-450) Mean Platelet Volume 8.4 FL (6.5-10.1) Neutrophils (%) (Auto) 79.3 % (45.0-75.0) H Lymphocytes (%) (Auto) 13.4 % (20.0-45.0) L Monocytes (%) (Auto) 7.1 % (1.0-10.0) Eosinophils (%) (Auto) 0.0 % (0.0-3.0) Basophils (%) (Auto) 0.2 % (0.0-2.0) Prothrombin Time 11.1 SEC (9.30-11.50) Prothromb Time International Ratio 1.0 (0.9-1.1) Activated Partial Thromboplast Time 26 SEC (23-33) Sodium Level 147 MMOL/L (136-145) H Potassium Level 3.9 MMOL/L (3.5-5.1) Chloride Level 113 MMOL/L (98-107) H Carbon Dioxide Level 23 MMOL/L (21-32) Anion Gap 11 mmol/L (5-15) Blood Urea Nitrogen 17 mg/dL (7-18) Creatinine 0.6 MG/DL (0.55-1.30) Estimat Glomerular Filtration Rate > 60 mL/min (>60) Glucose Level 144 MG/DL (74-106) H Calcium Level 7.8 MG/DL (8.5-10.1) L Total Bilirubin 0.7 MG/DL (0.2-1.0) Aspartate Amino Transf (AST/SGOT) 26 U/L (15-37) Alanine Aminotransferase (ALT/SGPT) 14 U/L (12-78) Alkaline Phosphatase 51 U/L (46-116) Total Protein 6.1 G/DL (6.4-8.2) L Albumin 2.6 G/DL (3.4-5.0) L Globulin 3.5 g/dL Albumin/Globulin Ratio 0.7 (1.0-2.7) L Microbiology Date/Time Source Procedure Growth Status 07/28/20 00:45 Urine,Clean Catch Urine Culture - Final Mixed Gram Positive Organism Complete 07/28/20 00:30 Blood Blood Culture - Preliminary NO GROWTH AFTER 48 HOURS Resulted 07/28/20 00:15 Blood Blood Culture - Preliminary NO GROWTH AFTER 48 HOURS Resulted 07/28/20 00:00 Nasopharynx SARS-CoV-2 Antigen (Rapid)(MICHAEL) - Final Complete Intake and Output 07/29/20 07/30/20 19:00 07:00 Intake Total 1100 ml 1110.0 ml Output Total 300 ml 1200 ml Balance 800 ml -90.0 ml IV Total 1100 ml 1110.0 ml Output Urine Total 250 ml 1200 ml Estimated Blood Loss 50 ml Objective General appearance: alert, cooperative, no distress, appears stated age Head: Normocephalic, without obvious abnormality, atraumatic Eyes: conjunctivae/corneas clear. PERRL, Throat: Lips, mucosa, and tongue normal. Teeth and gums normal Neck: supple, symmetrical, trachea midline, no adenopathy, thyroid: not enlarged, symmetric, no tenderness/mass/nodules, no carotid bruit and no JVD Lungs: clear to auscultation bilaterally Heart: regular rate and rhythm, S1, S2 normal, no murmur, click, rub or gallop Abdomen: Diffuse abd pain Extremities: extremities normal, atraumatic, no cyanosis or edema Pulses: 2+ and symmetric Skin: Skin color, texture, turgor normal. No rashes or lesions Neurologic: Grossly normal Assessment/Plan Assessment/Plan #abd pain #nausea #SBO #diabetes # dyslipidemia #multiple previous abdominal surgeries (c section, hysterectomy) IMPRESSION: Small bowel obstruction. Transition point within the pelvis. Distention up to 3 cm. No perforation. - admit inpatient - NG placement - hold meds for now - pain control - antiemetics - NPO - general surgery eval - Bg control - ISS López Matthews M.D. Jul 30, 2020 14:14
[2020-07-30 16:00] VITALS: BP 123/7
[2020-07-30 20:00] VITALS: BP 121/65
[2020-07-31] VITALS: BP 131/66
[2020-07-31] MEDS: DiphenhydrAMINE 50mg/ml Inj IVP PRN ×2 (00:17→21:02)
[2020-07-31] MEDS: D5 1/2NS w/KCl 20mEq 1,000 ML IV SCH ×3 (00:17→21:01)
[2020-07-31] MEDS: NovoLOG Insulin Flexpen SUBQ SCH ×4 (05:58→17:52)
[2020-07-31] MEDS: Piperacillin/Tazobactam 3.375 GM in NS 110 ML IVPB SCH ×3 (05:58→21:02)
[2020-07-31 08:00] VITALS: BP 105/68
--- NOTE | 2020-07-31 08:10 | Pulmonology Progress Note ---
Subjective ROS Limited/Unobtainable: No Interval Events: None major reported per nursing Constitutional: Reports: fever, other - Jboq=474.1 HEENT: Repors: no symptoms Respiratory: Reports: no symptoms Cardiovascular: Reports: no symptoms Gastrointestinal/Abdominal: Reports: constipation; Denies: nausea, vomiting Genitourinary: Reports: no symptoms Allergies: Coded Allergies: No Known Allergies (Unverified , 06/08/19) Objective Last 24 Hour Vital Signs Date Time Temp Pulse Resp B/P (MAP) Pulse Ox O2 Delivery O2 Flow Rate FiO2 07/31/20 00:00 97.5 66 16 131/66 (87) 100 07/30/20 21:00 Nasal Cannula 2.0 07/30/20 20:00 97.6 75 16 121/65 (83) 100 07/30/20 16:00 97.4 80 18 123/7 (45) 98 07/30/20 12:00 97.8 89 18 119/54 (75) 99 07/30/20 09:00 Room Air 07/30/20 08:58 98.1 Intake and Output 07/30/20 07/31/20 19:00 07:00 Output Total 1000 ml 900 ml Balance -1000 ml -900 ml Output Urine Total 1000 ml 900 ml General Appearance: no acute distress HEENT: atraumatic Respiratory: lungs clear Cardiovascular: normal rate, regular rhythm Abdomen: distended, tender Laboratory Tests 07/30/20 12:48: POC Whole Blood Glucose 125H 07/30/20 18:00: POC Whole Blood Glucose 129H 07/31/20 00:16: POC Whole Blood Glucose 122H 07/31/20 05:58: POC Whole Blood Glucose [Pending] Current Medications Medications (Trade) Dose Ordered Sig/Alexis Route PRN Reason Start Time Stop Time Status Last Admin Dose Admin Acetaminophen (Tylenol) 650 mg Q4H PRN RECTAL FEVER 07/29/20 17:30 08/28/20 17:29 Barium Sulfate (Readi-Cat 2) 450 ml NOW PRN ORAL Radiology Procedure 07/29/20 10:30 07/31/20 10:29 Cetylpyridinium Chloride (Cepacol) 1 lozg Q2H PRN GILMAR SORE THROAT 07/28/20 14:30 10/26/20 14:29 Dextrose (Dextrose 50%) 25 ml Q30M PRN IV Hypoglycemia 07/28/20 11:45 10/26/20 11:44 Dextrose (Dextrose 50%) 50 ml Q30M PRN IV Hypoglycemia 07/28/20 11:45 10/26/20 11:44 Dextrose/ Electrolytes 1,000 ml @ 100 mls/hr Q10H IV 07/29/20 18:30 08/28/20 18:29 07/31/20 00:17 Diphenhydramine HCl (Benadryl) 12.5 mg Q6H PRN IVP Itching/Pruritis 07/29/20 17:30 08/28/20 17:29 07/31/20 00:17 Famotidine (Pepcid I.v.) 20 mg Q12HR IVP 07/28/20 21:00 08/27/20 20:59 07/30/20 21:20 Insulin Aspart (NovoLOG) Q6HR SUBQ 07/28/20 18:00 10/26/20 17:59 Morphine Sulfate (Morphine Sulfate) 4 mg Q4H PRN IVP pain score 7-10 07/29/20 17:30 08/05/20 17:29 07/30/20 08:28 Non-Formulary Medication (Non-Formulary Med) 1 ea DAILY ORAL 07/29/20 09:00 08/28/20 08:59 UNV Non-Formulary Medication (Non-Formulary Med) 1 ea DAILY ORAL 07/29/20 09:00 08/28/20 08:59 UNV Ondansetron HCl (Zofran) 4 mg Q4H PRN IVP Nausea & Vomiting 07/28/20 10:45 08/27/20 10:44 07/30/20 08:37 Piperacillin Sod/ Tazobactam Sod 3.375 gm/Sodium Chloride 110 ml @ 27.5 mls/hr EVERY 8 HOURS IVPB 07/28/20 14:00 08/02/20 13:59 07/31/20 05:58 Assessment/Plan Assessment/Plan 1. UTI 2. Emphysematous changes on CXR -Patient denies smoking history; -Patient is saturating well on 2L/min; provide supplemental oxygen as needed 3. COVID-19 negative (07/28) 4. Small bowel obstruction, S/p diagnostic laparoscopy, laparoscopic-assisted small bowel resection, extensive laparoscopic lysis of adhesions. 5. DM with hyperglycemia - BG control; Accu-checks Sean Prince MD Jul 31, 2020 08:10
[2020-07-31 09:42] LABS: BASOPHILS % (AUTO) 0.2 % (0.0-2.0); HEMATOCRIT 41.2 % (37.0-47.0); HEMOGLOBIN 13.3 G/DL (12.0-16.0); LYMPHOCYTES % (AUTO) 15.4 % (20.0-45.0); MEAN CORPUSCULAR VOLUME 92 FL (80-99); MONOCYTES % (AUTO) 7.5 % (1.0-10.0); NEUTROPHILS % (AUTO) 76.8 % (45.0-75.0); PLATELET COUNT 221 K/UL (150-450); RED BLOOD COUNT 4.46 M/UL (4.20-5.40); RED CELL DISTRIBUTION WIDTH 13.7 % (11.6-14.8); WHITE BLOOD COUNT 12.7 K/UL (4.8-10.8)
[2020-07-31 09:55] LABS: PHOSPHORUS 1.6 MG/DL (2.5-4.9)
[2020-07-31 10:05] LABS: ALANINE AMINOTRANSFERASE 18 U/L (12-78); ALBUMIN 2.8 G/DL (3.4-5.0); ALBUMIN/GLOBULIN RATIO 0.7 (1.0-2.7); ALKALINE PHOSPHATASE 58 U/L (46-116); ANION GAP 12 mmol/L (5-15); ASPARTATE AMINO TRANSFERASE 21 U/L (15-37); BILIRUBIN,TOTAL 0.7 MG/DL (0.2-1.0); BLOOD UREA NITROGEN 16 mg/dL (7-18); CALCIUM 7.7 MG/DL (8.5-10.1); CARBON DIOXIDE 24 MMOL/L (21-32); CHLORIDE 113 MMOL/L (98-107); CREATININE 0.6 MG/DL (0.55-1.30); POTASSIUM 3.4 MMOL/L (3.5-5.1); SODIUM 148 MMOL/L (136-145)
[2020-07-31 12:00] VITALS: BP 122/66
--- NOTE | 2020-07-31 12:29 | Surgery Progress Note ---
Surgery Progress Note Subjective Procedure Performed 1 diagnostic laparoscopy 2 laparoscopic assisted small bowel resection 3 extensive laparoscopic lysis of adhesions For abdominal washout and closure Additional Comments improved passing flatus no n/v labs improved ambulatory Objective Last 24 Hour Vital Signs Date Time Temp Pulse Resp B/P (MAP) Pulse Ox O2 Delivery O2 Flow Rate FiO2 07/31/20 09:00 Room Air 07/31/20 08:00 97.6 68 16 105/68 (80) 99 07/31/20 00:00 97.5 66 16 131/66 (87) 100 07/30/20 21:00 Nasal Cannula 2.0 07/30/20 20:00 97.6 75 16 121/65 (83) 100 07/30/20 16:00 97.4 80 18 123/7 (45) 98 I&O Intake and Output 07/30/20 07/31/20 19:00 07:00 Output Total 1000 ml 900 ml Balance -1000 ml -900 ml Output Urine Total 1000 ml 900 ml Dressing: dry Wound: clean Cardiovascular: RSR Respiratory: clear Abdomen: soft, non-tender, present bowel sounds, other, non-distended Extremities: no edema, no tenderness, no cyanosis Laboratory Tests Test 07/30/20 12:48 07/30/20 18:00 07/31/20 00:16 07/31/20 05:58 POC Whole Blood Glucose 125 MG/DL (74-106) H 129 MG/DL (74-106) H 122 MG/DL (74-106) H Pending Test 07/31/20 08:50 07/31/20 11:48 White Blood Count 12.7 K/UL (4.8-10.8) H Red Blood Count 4.46 M/UL (4.20-5.40) Hemoglobin 13.3 G/DL (12.0-16.0) Hematocrit 41.2 % (37.0-47.0) Mean Corpuscular Volume 92 FL (80-99) Mean Corpuscular Hemoglobin 29.9 PG (27.0-31.0) Mean Corpuscular Hemoglobin Concent 32.4 G/DL (32.0-36.0) Red Cell Distribution Width 13.7 % (11.6-14.8) Platelet Count 221 K/UL (150-450) Mean Platelet Volume 7.7 FL (6.5-10.1) Neutrophils (%) (Auto) 76.8 % (45.0-75.0) H Lymphocytes (%) (Auto) 15.4 % (20.0-45.0) L Monocytes (%) (Auto) 7.5 % (1.0-10.0) Eosinophils (%) (Auto) 0.0 % (0.0-3.0) Basophils (%) (Auto) 0.2 % (0.0-2.0) Sodium Level 148 MMOL/L (136-145) H Potassium Level 3.4 MMOL/L (3.5-5.1) L Chloride Level 113 MMOL/L (98-107) H Carbon Dioxide Level 24 MMOL/L (21-32) Anion Gap 12 mmol/L (5-15) Blood Urea Nitrogen 16 mg/dL (7-18) Creatinine 0.6 MG/DL (0.55-1.30) Estimat Glomerular Filtration Rate > 60 mL/min (>60) Glucose Level 147 MG/DL (74-106) H Calcium Level 7.7 MG/DL (8.5-10.1) L Phosphorus Level 1.6 MG/DL (2.5-4.9) L Magnesium Level 2.9 MG/DL (1.8-2.4) H Total Bilirubin 0.7 MG/DL (0.2-1.0) Aspartate Amino Transf (AST/SGOT) 21 U/L (15-37) Alanine Aminotransferase (ALT/SGPT) 18 U/L (12-78) Alkaline Phosphatase 58 U/L (46-116) Total Protein 6.6 G/DL (6.4-8.2) Albumin 2.8 G/DL (3.4-5.0) L Globulin 3.8 g/dL Albumin/Globulin Ratio 0.7 (1.0-2.7) L POC Whole Blood Glucose Pending Plan Problems: (1) Diabetes (2) UTI (urinary tract infection) (3) Abdominal pain (4) Vomiting (5) Dyslipidemia (6) Upper respiratory infection (7) Small bowel obstruction Assessment & Plan: This is a 70-year-old female with history of multiple abdominal surgeries including , hysterectomy, abdominoplasty who presented with acute onset abdominal pain for 1 day with associated nausea and vomiting. Leukocytosis identified CT with small bowel obstruction transition point in the pelvis. NG tube placed patient made n.p.o. and admitted further care and management. When seen at the bedside patient states her pain is fairly better and nothing as compared to yesterday when it began. States she has not had any flatus or bowel movement today last flatus and bowel movement was early yesterday prior to worsening onset. NG tube in place with minimal output since. KUB recent after CT scan with nonobstructive bowel gas pattern. On abdominal examination she is uncomfortable when palpating the lower pelvis but the remainder of the quadrants are fairly benign. She does not look significantly distended and is fairly comfortable. Currently no nausea vomiting fever chills. CT reviewed personally and there is significant portion of the small bowel with transition point identified in the proximal portion does have significant amount of fluid noted in it with distention. She is fairly constipated as the remaining of her colon distally is full. History of chronic constipation noted as well. Given the above findings Clinical examination review of the imaging patient does have a small bowel obstruction likely to secondary to abdominal adhesions from prior surgery. She has been initiated on nonoperative conservative management and slightly improved. I do long discussion with the patient regards the findings and decision and care plan choices. We discussed operative intervention versus nonoperative. Given she is made a slight improvement in the course over the past few hours we will continue with current care plan. N.p.o. IV fluids NG tube to suction repeat KUB in the morning followed by serial abdominal examinations. If continues to improve and potentially resolves a potential. Otherwise I discussed care plan with patient and there is potential for requiring exploratory laparotomy. Will follow with recommendations thank you for letting present patient's care npo iv fluids trend labs CT with IV contrast ordered discussed with family and patient ng tube to low intermittent suction ct noted persistent sbo no better recommend surgery consent to or Liver: Unremarkable. Gallbladder and bile ducts: Unremarkable. Pancreas: Unremarkable. Spleen: Unremarkable. Adrenals: Unremarkable. Kidneys and ureters: Unremarkable. No obstructing stones. No hydronephrosis. Stomach and bowel: Small bowel obstruction. Transition point within the pelvis. Distention up to 3 cm. No perforation. PELVIS: Appendix: No findings to suggest acute appendicitis. Bladder: Unremarkable. Reproductive: Hysterectomy. ABDOMEN and PELVIS: Intraperitoneal space: Unremarkable. No free air. No significant fluid collection. Bones/joints: No acute fracture. Soft tissues: Unremarkable. Vasculature: Unremarkable. Lymph nodes: Unremarkable. IMPRESSION: Small bowel obstruction. Transition point within the pelvis. Distention up to 3 cm. No perforation. s/p lap sb resection wayne doing well recovering doing well d/c romo heparin incentive spirometry ambulate npo okay for ice chips await return of bowel function (8) Chest pain (9) Chest pain (10) Patellar fracture (11) Patient left without being seen (12) Knee contusion (13) Hand contusion (14) Injury of lower extremity (15) Injury of lower extremity (16) Knee abrasion Jaguar Mora Jul 31, 2020 12:29
[2020-07-31] MEDS ORDERED: Potassium Phosphate 20 MM in NS 275 ML IV ONE (15:00)
[2020-07-31 16:00] VITALS: BP 112/67
--- NOTE | 2020-07-31 16:59 | Internal Med Progress Note ---
Subjective Physician Name López Matthews Attending Physician López Matthews M.D. Current Medications Medications (Trade) Dose Ordered Sig/Alexis Route PRN Reason Start Time Stop Time Status Last Admin Dose Admin Acetaminophen (Tylenol) 650 mg Q4H PRN RECTAL FEVER 07/29/20 17:30 08/28/20 17:29 Cetylpyridinium Chloride (Cepacol) 1 lozg Q2H PRN GILMAR SORE THROAT 07/28/20 14:30 10/26/20 14:29 Dextrose (Dextrose 50%) 25 ml Q30M PRN IV Hypoglycemia 07/28/20 11:45 10/26/20 11:44 Dextrose (Dextrose 50%) 50 ml Q30M PRN IV Hypoglycemia 07/28/20 11:45 10/26/20 11:44 Dextrose/ Electrolytes 1,000 ml @ 100 mls/hr Q10H IV 07/29/20 18:30 08/28/20 18:29 07/31/20 10:30 Diphenhydramine HCl (Benadryl) 12.5 mg Q6H PRN IVP Itching/Pruritis 07/29/20 17:30 08/28/20 17:29 07/31/20 00:17 Famotidine (Pepcid I.v.) 20 mg Q12HR IVP 07/28/20 21:00 08/27/20 20:59 07/31/20 08:43 Heparin Sodium (Porcine) (Heparin 5000 units/ml) 5,000 units EVERY 12 HOURS SUBQ 07/31/20 21:00 09/14/20 20:59 Insulin Aspart (NovoLOG) Q6HR SUBQ 07/28/20 18:00 10/26/20 17:59 Morphine Sulfate (Morphine Sulfate) 4 mg Q4H PRN IVP pain score 7-10 07/29/20 17:30 08/05/20 17:29 07/30/20 08:28 Ondansetron HCl (Zofran) 4 mg Q4H PRN IVP Nausea & Vomiting 07/28/20 10:45 08/27/20 10:44 07/30/20 08:37 Piperacillin Sod/ Tazobactam Sod 3.375 gm/Sodium Chloride 110 ml @ 27.5 mls/hr EVERY 8 HOURS IVPB 07/28/20 14:00 08/02/20 13:59 07/31/20 13:51 Potassium Phosphate 20 mm/ Sodium Chloride 281.6667 ml @ 46.944 m... ONCE ONCE IV 07/31/20 15:00 07/31/20 20:59 07/31/20 15:24 Allergies: Coded Allergies: No Known Allergies (Unverified , 06/08/19) ROS Limited/Unobtainable: No HEENT: Denies: no symptoms, eye pain, blurred vision, tearing, double vision, ear pain, ear discharge, nose pain, nose congestion, throat pain, throat swelling, mouth pain, mouth swelling, other Cardiovascular: Denies: no symptoms, chest pain, edema, irregular heart rate, lightheadedness, palpitations, syncope, other Respiratory: Denies: no symptoms, cough, orthopnea, shortness of breath, SOB with excertion, SOB at rest, sputum, stridor, wheezing, other Gastrointestinal/Abdominal: Denies: no symptoms, abdomen distended, abdominal pain, black stools, tarry stools, blood in stool, constipated, diarrhea, difficulty swallowing, nausea, poor appetite, poor fluid intake, rectal bleeding, vomiting, other Genitourinary: Denies: no symptoms, burning, discharge, frequency, flank pain, hematuria, incontinence, pain, urgency, other Neurologic/Psychiatric: Denies: no symptoms, anxiety, depressed, emotional problems, headache, numbness, paresthesia, pre-existing deficit, seizure, tingling, tremors, weakness, other Subjective 1 diagnostic laparoscopy 2 laparoscopic assisted small bowel resection 3 extensive laparoscopic lysis of adhesions For abdominal washout and closure pain controlled doing well Objective Last Vital Signs Date Time Temp Pulse Resp B/P (MAP) Pulse Ox O2 Delivery O2 Flow Rate FiO2 07/31/20 12:00 98.0 70 16 122/66 (84) 97 07/31/20 09:00 Room Air 07/30/20 21:00 2.0 Laboratory Tests Test 07/30/20 18:00 07/31/20 00:16 07/31/20 05:58 07/31/20 08:50 POC Whole Blood Glucose 129 MG/DL (74-106) H 122 MG/DL (74-106) H 97 MG/DL (74-106) White Blood Count 12.7 K/UL (4.8-10.8) H Red Blood Count 4.46 M/UL (4.20-5.40) Hemoglobin 13.3 G/DL (12.0-16.0) Hematocrit 41.2 % (37.0-47.0) Mean Corpuscular Volume 92 FL (80-99) Mean Corpuscular Hemoglobin 29.9 PG (27.0-31.0) Mean Corpuscular Hemoglobin Concent 32.4 G/DL (32.0-36.0) Red Cell Distribution Width 13.7 % (11.6-14.8) Platelet Count 221 K/UL (150-450) Mean Platelet Volume 7.7 FL (6.5-10.1) Neutrophils (%) (Auto) 76.8 % (45.0-75.0) H Lymphocytes (%) (Auto) 15.4 % (20.0-45.0) L Monocytes (%) (Auto) 7.5 % (1.0-10.0) Eosinophils (%) (Auto) 0.0 % (0.0-3.0) Basophils (%) (Auto) 0.2 % (0.0-2.0) Sodium Level 148 MMOL/L (136-145) H Potassium Level 3.4 MMOL/L (3.5-5.1) L Chloride Level 113 MMOL/L (98-107) H Carbon Dioxide Level 24 MMOL/L (21-32) Anion Gap 12 mmol/L (5-15) Blood Urea Nitrogen 16 mg/dL (7-18) Creatinine 0.6 MG/DL (0.55-1.30) Estimat Glomerular Filtration Rate > 60 mL/min (>60) Glucose Level 147 MG/DL (74-106) H Calcium Level 7.7 MG/DL (8.5-10.1) L Phosphorus Level 1.6 MG/DL (2.5-4.9) L Magnesium Level 2.9 MG/DL (1.8-2.4) H Total Bilirubin 0.7 MG/DL (0.2-1.0) Aspartate Amino Transf (AST/SGOT) 21 U/L (15-37) Alanine Aminotransferase (ALT/SGPT) 18 U/L (12-78) Alkaline Phosphatase 58 U/L (46-116) Total Protein 6.6 G/DL (6.4-8.2) Albumin 2.8 G/DL (3.4-5.0) L Globulin 3.8 g/dL Albumin/Globulin Ratio 0.7 (1.0-2.7) L Test 07/31/20 11:48 POC Whole Blood Glucose 109 MG/DL (74-106) H Intake and Output 07/30/20 07/31/20 19:00 07:00 Output Total 1000 ml 900 ml Balance -1000 ml -900 ml Output Urine Total 1000 ml 900 ml Objective General appearance: alert, cooperative, no distress, appears stated age Head: Normocephalic, without obvious abnormality, atraumatic Eyes: conjunctivae/corneas clear. PERRL, Throat: Lips, mucosa, and tongue normal. Teeth and gums normal Neck: supple, symmetrical, trachea midline, no adenopathy, thyroid: not enl arged, symmetric, no tenderness/mass/nodules, no carotid bruit and no JVD Lungs: clear to auscultation bilaterally Heart: regular rate and rhythm, S1, S2 normal, no murmur, click, rub or gallop Abdomen: Diffuse abd pain Extremities: extremities normal, atraumatic, no cyanosis or edema Pulses: 2+ and symmetric Skin: Skin color, texture, turgor normal. No rashes or lesions Neurologic: Grossly normal Assessment/Plan Assessment/Plan #abd pain #nausea #SBO #diabetes # dyslipidemia #multiple previous abdominal surgeries (c section, hysterectomy) IMPRESSION: Small bowel obstruction. Transition point within the pelvis. Distention up to 3 cm. No perforation. - admit inpatient - NG placement - hold meds for now - pain control - antiemetics - NPO - general surgery eval - Bg control - ISS López Matthews M.D. Jul 31, 2020 16:59
[2020-07-31 20:00] VITALS: BP 131/66
[2020-07-31] MEDS: Heparin 5000 units/ml inj SUBQ SCH (21:11)
[2020-08-01 04:00] VITALS: BP 126/64
[2020-08-01] MEDS: Piperacillin/Tazobactam 3.375 GM in NS 110 ML IVPB SCH ×3 (05:17→21:24)
[2020-08-01] MEDS: NovoLOG Insulin Flexpen SUBQ SCH ×5 (06:00→20:51)
[2020-08-01] MEDS: D5 1/2NS w/KCl 20mEq 1,000 ML IV SCH ×2 (06:30→10:12)
[2020-08-01 08:00] VITALS: BP 126/68
[2020-08-01] MEDS: Heparin 5000 units/ml inj SUBQ SCH ×2 (08:57→20:36)
--- NOTE | 2020-08-01 09:01 | Internal Med Progress Note ---
Subjective Physician Name López Matthews Attending Physician López Matthews M.D. Current Medications Medications (Trade) Dose Ordered Sig/Alexis Route PRN Reason Start Time Stop Time Status Last Admin Dose Admin Acetaminophen (Tylenol) 650 mg Q4H PRN RECTAL FEVER 07/29/20 17:30 08/28/20 17:29 Cetylpyridinium Chloride (Cepacol) 1 lozg Q2H PRN IGLMAR SORE THROAT 07/28/20 14:30 10/26/20 14:29 Dextrose (Dextrose 50%) 25 ml Q30M PRN IV Hypoglycemia 07/28/20 11:45 10/26/20 11:44 Dextrose (Dextrose 50%) 50 ml Q30M PRN IV Hypoglycemia 07/28/20 11:45 10/26/20 11:44 Dextrose/ Electrolytes 1,000 ml @ 100 mls/hr Q10H IV 07/29/20 18:30 08/28/20 18:29 07/31/20 21:01 Diphenhydramine HCl (Benadryl) 12.5 mg Q6H PRN IVP Itching/Pruritis 07/29/20 17:30 08/28/20 17:29 07/31/20 21:02 Famotidine (Pepcid I.v.) 20 mg Q12HR IVP 07/28/20 21:00 08/27/20 20:59 08/01/20 08:56 Heparin Sodium (Porcine) (Heparin 5000 units/ml) 5,000 units EVERY 12 HOURS SUBQ 07/31/20 21:00 09/14/20 20:59 08/01/20 08:57 Insulin Aspart (NovoLOG) Q6HR SUBQ 07/28/20 18:00 10/26/20 17:59 Morphine Sulfate (Morphine Sulfate) 4 mg Q4H PRN IVP pain score 7-10 07/29/20 17:30 08/05/20 17:29 07/30/20 08:28 Ondansetron HCl (Zofran) 4 mg Q4H PRN IVP Nausea & Vomiting 07/28/20 10:45 08/27/20 10:44 07/30/20 08:37 Piperacillin Sod/ Tazobactam Sod 3.375 gm/Sodium Chloride 110 ml @ 27.5 mls/hr EVERY 8 HOURS IVPB 07/28/20 14:00 08/02/20 13:59 08/01/20 05:17 Allergies: Coded Allergies: No Known Allergies (Unverified , 06/08/19) ROS Limited/Unobtainable: No Subjective 1 diagnostic laparoscopy 2 laparoscopic assisted small bowel resection 3 extensive laparoscopic lysis of adhesions For abdominal washout and closure pain controlled doing well tolerating diet Objective Last Vital Signs Date Time Temp Pulse Resp B/P (MAP) Pulse Ox O2 Delivery O2 Flow Rate FiO2 08/01/20 08:00 97.7 52 18 126/68 (87) 99 07/31/20 21:00 Room Air 07/30/20 21:00 2.0 Laboratory Tests Test 07/31/20 11:48 07/31/20 17:34 08/01/20 07:04 POC Whole Blood Glucose 109 MG/DL (74-106) H 85 MG/DL (74-106) 111 MG/DL (74-106) H Intake and Output 07/31/20 08/01/20 19:00 07:00 # Voids 4 2 Objective General appearance: alert, cooperative, no distress, appears stated age Head: Normocephalic, without obvious abnormality, atraumatic Eyes: conjunctivae/corneas clear. PERRL, Throat: Lips, mucosa, and tongue normal. Teeth and gums normal Neck: supple, symmetrical, trachea midline, no adenopathy, thyroid: not enlarged, symmetric, no tenderness/mass/nodules, no carotid bruit and no JVD Lungs: clear to auscultation bilaterally Heart: regular rate and rhythm, S1, S2 normal, no murmur, click, rub or gallop Abdomen: Diffuse abd pain Extremities: extremities normal, atraumatic, no cyanosis or edema Pulses: 2+ and symmetric Skin: Skin color, texture, turgor normal. No rashes or lesions Neurologic: Grossly normal Assessment/Plan Assessment/Plan #abd pain #nausea #SBO #diabetes # dyslipidemia #multiple previous abdominal surgeries (c section, hysterectomy) IMPRESSION: Small bowel obstruction. Transition point within the pelvis. Distention up to 3 cm. No perforation. - admit inpatient - NG placement - hold meds for now - pain control - antiemetics - NPO - general surgery eval - Bg control - López Talbot M.D. Aug 01, 2020 09:01
--- NOTE | 2020-08-01 09:52 | Surgery Progress Note ---
Surgery Progress Note Subjective Procedure Performed 1 diagnostic laparoscopy 2 laparoscopic assisted small bowel resection 3 extensive laparoscopic lysis of adhesions For abdominal washout and closure Additional Comments tentatively refuse labs this am pending labs afebrile, HD stable no n/v/f/c start clear liquid trial +flatus Objective Last 24 Hour Vital Signs Date Time Temp Pulse Resp B/P (MAP) Pulse Ox O2 Delivery O2 Flow Rate FiO2 08/01/20 08:00 97.7 52 18 126/68 (87) 99 08/01/20 04:00 98.5 67 16 126/64 (84) 97 07/31/20 21:00 Room Air 07/31/20 20:00 98.9 65 16 131/66 (87) 96 07/31/20 16:00 97.9 70 16 112/67 (82) 96 07/31/20 12:00 98.0 70 16 122/66 (84) 97 I&O Intake and Output 07/31/20 08/01/20 19:00 07:00 # Voids 4 2 Laboratory Tests Test 07/31/20 11:48 07/31/20 17:34 08/01/20 07:04 POC Whole Blood Glucose 109 MG/DL (74-106) H 85 MG/DL (74-106) 111 MG/DL (74-106) H Plan Problems: (1) Diabetes (2) UTI (urinary tract infection) (3) Abdominal pain (4) Vomiting (5) Dyslipidemia (6) Upper respiratory infection (7) Small bowel obstruction Assessment & Plan: This is a 70-year-old female with history of multiple abdominal surgeries including , hysterectomy, abdominoplasty who presented with acute onset abdominal pain for 1 day with associated nausea and vomiting. Leukocytosis identified CT with small bowel obstruction transition point in the pelvis. NG tube placed patient made n.p.o. and admitted further care and management. When seen at the bedside patient states her pain is fairly better and nothing as compared to yesterday when it began. States she has not had any flatus or bowel movement today last flatus and bowel movement was early yesterday prior to worsening onset. NG tube in place with minimal output since. KUB recent after CT scan with nonobstructive bowel gas pattern. On abdominal examination she is uncomfortable when palpating the lower pelvis but the remainder of the quadrants are fairly benign. She does not look significantly distended and is fairly comfortable. Currently no nausea vomiting fever chills. CT reviewed personally and there is significant portion of the small bowel with transition point identified in the proximal portion does have significant amount of fluid noted in it with distention. She is fairly constipated as the remaining of her colon distally is full. History of chronic constipation noted as well. Given the above findings Clinical examination review of the imaging patient does have a small bowel obstruction likely to secondary to abdominal adhesions from prior surgery. She has been initiated on nonoperative conservative management and slightly im proved. I do long discussion with the patient regards the findings and decision and care plan choices. We discussed operative intervention versus nonoperative. Given she is made a slight improvement in the course over the past few hours we will continue with current care plan. N.p.o. IV fluids NG tube to suction repeat KUB in the morning followed by serial abdominal examinations. If continues to improve and potentially resolves a potential. Otherwise I discussed care plan with patient and there is potential for requiring exploratory laparotomy. Will follow with recommendations thank you for letting present patient's care npo iv fluids trend labs CT with IV contrast ordered discussed with family and patient ng tube to low intermittent suction ct noted persistent sbo no better recommend surgery consent to or Liver: Unremarkable. Gallbladder and bile ducts: Unremarkable. Pancreas: Unremarkable. Spleen: Unremarkable. Adrenals: Unremarkable. Kidneys and ureters: Unremarkable. No obstructing stones. No hydronephrosis. Stomach and bowel: Small bowel obstruction. Transition point within the pelvis. Distention up to 3 cm. No perforation. PELVIS: Appendix: No findings to suggest acute appendicitis. Bladder: Unremarkable. Reproductive: Hysterectomy. ABDOMEN and PELVIS: Intraperitoneal space: Unremarkable. No free air. No significant fluid collection. Bones/joints: No acute fracture. Soft tissues: Unremarkable. Vasculature: Unremarkable. Lymph nodes: Unremarkable. IMPRESSION: Small bowel obstruction. Transition point within the pelvis. Distention up to 3 cm. No perforation. s/p lap sb resection wayne doing well recovering doing well d/c romo heparin incentive spirometry ambulate npo okay for ice chips await return of bowel function (8) Chest pain (9) Chest pain (10) Patellar fracture (11) Patient left without being seen (12) Knee contusion (13) Hand contusion (14) Injury of lower extremity (15) Injury of lower extremity (16) Knee abrasion Jaguar Mora Aug 01, 2020 09:52
[2020-08-01] MEDS: Ketorolac 30mg Inj IV SCH ×3 (10:03→21:59)
[2020-08-01 10:19] LABS: BASOPHILS % (AUTO) 0.8 % (0.0-2.0); EOSINOPHILS % (AUTO) 0.4 % (0.0-3.0); HEMATOCRIT 41.7 % (37.0-47.0); HEMOGLOBIN 13.1 G/DL (12.0-16.0); LYMPHOCYTES % (AUTO) 35.4 % (20.0-45.0); MEAN CORPUSCULAR VOLUME 91 FL (80-99); MONOCYTES % (AUTO) 7.5 % (1.0-10.0); NEUTROPHILS % (AUTO) 55.9 % (45.0-75.0); PLATELET COUNT 240 K/UL (150-450); RED BLOOD COUNT 4.57 M/UL (4.20-5.40); RED CELL DISTRIBUTION WIDTH 13.6 % (11.6-14.8); WHITE BLOOD COUNT 9.4 K/UL (4.8-10.8)
[2020-08-01 10:46] LABS: ALANINE AMINOTRANSFERASE 18 U/L (12-78); ALBUMIN 2.8 G/DL (3.4-5.0); ALBUMIN/GLOBULIN RATIO 0.8 (1.0-2.7); ALKALINE PHOSPHATASE 45 U/L (46-116); ANION GAP 7 mmol/L (5-15); ASPARTATE AMINO TRANSFERASE 23 U/L (15-37); BILIRUBIN,TOTAL 0.8 MG/DL (0.2-1.0); BLOOD UREA NITROGEN 14 mg/dL (7-18); CALCIUM 7.5 MG/DL (8.5-10.1); CARBON DIOXIDE 28 MMOL/L (21-32); CHLORIDE 109 MMOL/L (98-107); CHOLESTEROL 127 MG/DL (< 200); CREATININE 0.5 MG/DL (0.55-1.30); HDL CHOLESTEROL 55 MG/DL (40-60); SODIUM 144 MMOL/L (136-145); TRIGLYCERIDES 105 MG/DL (30-150)
[2020-08-01 11:32] LABS: PHOSPHORUS 0.6 MG/DL (2.5-4.9)
[2020-08-01] MEDS ORDERED: Potassium Phosphate 20 MM in NS 275 ML IV ONE ×2 (11:45→13:00)
--- NOTE | 2020-08-01 11:51 | Pulmonology Progress Note ---
Subjective ROS Limited/Unobtainable: No Interval Events: None major reported per nursing Constitutional: Reports: fever, other - resolved HEENT: Repors: no symptoms Respiratory: Reports: no symptoms Cardiovascular: Reports: no symptoms Gastrointestinal/Abdominal: Reports: constipation; Denies: nausea, vomiting Genitourinary: Reports: no symptoms Allergies: Coded Allergies: No Known Allergies (Unverified , 06/08/19) Objective Last 24 Hour Vital Signs Date Time Temp Pulse Resp B/P (MAP) Pulse Ox O2 Delivery O2 Flow Rate FiO2 08/01/20 08:00 97.7 52 18 126/68 (87) 99 08/01/20 04:00 98.5 67 16 126/64 (84) 97 07/31/20 21:00 Room Air 07/31/20 20:00 98.9 65 16 131/66 (87) 96 07/31/20 16:00 97.9 70 16 112/67 (82) 96 07/31/20 12:00 98.0 70 16 122/66 (84) 97 Intake and Output 07/31/20 08/01/20 19:00 07:00 # Voids 4 2 General Appearance: no acute distress HEENT: atraumatic Respiratory: lungs clear Cardiovascular: normal rate, regular rhythm Abdomen: distended, tender Laboratory Tests 07/31/20 17:34: POC Whole Blood Glucose 85 08/01/20 07:04: POC Whole Blood Glucose 111H 08/01/20 10:00: White Blood Count 9.4, Red Blood Count 4.57, Hemoglobin 13.1, Hematocrit 41.7, Mean Corpuscular Volume 91, Mean Corpuscular Hemoglobin 28.6, Mean Corpuscular Hemoglobin Concent 31.4L, Red Cell Distribution Width 13.6, Platelet Count 240, Mean Platelet Volume 7.5, Neutrophils (%) (Auto) 55.9, Lymphocytes (%) (Auto) 35.4, Monocytes (%) (Auto) 7.5, Eosinophils (%) (Auto) 0.4, Basophils (%) (Auto) 0.8, Sodium Level 144, Potassium Level 3.0L, Chloride Level 109H, Carbon Dioxide Level 28, Anion Gap 7, Blood Urea Nitrogen 14, Creatinine 0.5L, Estimat Glomerular Filtration Rate > 60, Glucose Level 150H, Calcium Level 7.5L, Phosphorus Level 0.6*L, Magnesium Level 2.5H, Total Bilirubin 0.8, Aspartate Amino Transf (AST/SGOT) 23, Alanine Aminotransferase (ALT/SGPT) 18, Alkaline Phosphatase 45L, Total Protein 6.3L, Albumin 2.8L, Globulin 3.5, Albumin/Globulin Ratio 0.8L, Triglycerides Level 105, Cholesterol Level 127, LDL Cholesterol 46, HDL Cholesterol 55, Cholesterol/HDL Ratio 2.3L Current Medications Medications (Trade) Dose Ordered Sig/Alexis Route PRN Reason Start Time Stop Time Status Last Admin Dose Admin Acetaminophen (Tylenol) 650 mg Q4H PRN RECTAL FEVER 07/29/20 17:30 08/28/20 17:29 Cetylpyridinium Chloride (Cepacol) 1 lozg Q2H PRN GILMAR SORE THROAT 07/28/20 14:30 10/26/20 14:29 Dextrose (Dextrose 50%) 25 ml Q30M PRN IV Hypoglycemia 07/28/20 11:45 10/26/20 11:44 Dextrose (Dextrose 50%) 50 ml Q30M PRN IV Hypoglycemia 07/28/20 11:45 10/26/20 11:44 Dextrose/ Electrolytes 1,000 ml @ 75 mls/hr [id number] IV 07/29/20 18:30 08/28/20 18:29 08/01/20 10:12 Diphenhydramine HCl (Benadryl) 12.5 mg Q6H PRN IVP Itching/Pruritis 07/29/20 17:30 08/28/20 17:29 07/31/20 21:02 Famotidine (Pepcid I.v.) 20 mg Q12HR IVP 07/28/20 21:00 08/27/20 20:59 08/01/20 08:56 Heparin Sodium (Porcine) (Heparin 5000 units/ml) 5,000 units EVERY 12 HOURS SUBQ 07/31/20 21:00 09/14/20 20:59 08/01/20 08:57 Insulin Aspart (NovoLOG) Q6HR SUBQ 07/28/20 18:00 10/26/20 17:59 Ketorolac Tromethamine (Toradol 30mg) 15 mg Q6H IV 08/01/20 10:00 08/03/20 09:59 08/01/20 10:03 Morphine Sulfate (Morphine Sulfate) 4 mg Q4H PRN IVP pain score 7-10 07/29/20 17:30 08/05/20 17:29 07/30/20 08:28 Ondansetron HCl (Zofran) 4 mg Q4H PRN IVP Nausea & Vomiting 07/28/20 10:45 08/27/20 10:44 07/30/20 08:37 Piperacillin Sod/ Tazobactam Sod 3.375 gm/Sodium Chloride 110 ml @ 27.5 mls/hr EVERY 8 HOURS IVPB 07/28/20 14:00 08/02/20 13:59 08/01/20 05:17 Potassium Phosphate 20 mm/ Sodium Chloride 281.6667 ml @ 46.944 m... ONCE ONCE IV 08/01/20 13:00 08/01/20 18:59 Assessment/Plan Assessment/Plan 1. UTI -Per primary MD 2. Nausea/vomiting with risk of aspiration - s/p NG tube; collecting bilious fluids -On Zofran for nausea -Monitor WBC and fever 3. Emphysematous changes on CXR -Patient denies smoking history; spoke to daughter as well who denies smoking hx -Patient is saturating well on room air; provide supplemental oxygen as needed 4. COVID-19 negative (07/28) 5. Small bowel obstruction -S/p diagnostic laparoscopy, laparoscopic-assisted small bowel resection, extensive laparoscopic lysis of adhesions. -f/u imaging (07/29); management per surgery 6. DM with hyperglycemia - BG control; Accu-checks - per primary MD The care for this patient was discussed with my supervising physician. Time spent for this case was approximately 31 minutes. Addison Church Aug 01, 2020 11:51
[2020-08-01 12:00] VITALS: BP 120/63
[2020-08-01] MEDS ORDERED: Vitamin B12 1000mcg/ml Inj IM SCH (12:00)
[2020-08-01] MEDS: Morphine Sulfate 4mg/ml Inj (IV USE ONLY) IVP PRN ×3 (13:13→20:36)
[2020-08-01 16:00] VITALS: BP 115/56
[2020-08-01 20:00] VITALS: BP 104/61
[2020-08-02 04:00] VITALS: BP 110/69
[2020-08-02] MEDS: Ketorolac 30mg Inj IV SCH ×2 (04:14→11:06)
[2020-08-02] MEDS: Piperacillin/Tazobactam 3.375 GM in NS 110 ML IVPB SCH (05:52)
[2020-08-02] MEDS: NovoLOG Insulin Flexpen SUBQ SCH ×2 (05:53→11:30)
[2020-08-02 08:00] VITALS: BP 119/61
[2020-08-02] MEDS: Heparin 5000 units/ml inj SUBQ SCH (08:38)
[2020-08-02] MEDS: D5 1/2NS w/KCl 20mEq 1,000 ML IV SCH (08:43)
[2020-08-02] MEDS ORDERED: Tylenol #3 tab (300mg/30mg) ORAL PRN (09:15)
[2020-08-02] MEDS ORDERED: COLACE100 MG ORAL (09:55)
[2020-08-02] MEDS ORDERED: TYLENOL WITH C1 EACH ORAL (09:55)
--- NOTE | 2020-08-02 09:57 | Discharge Instructions ---
Discharge Instructions Discharge Instructions Follow up with: Dr. Mora 08/10/20 at 10AM Diet: soft - slowly advance diet as tolerated at home Resume Normal Activity?: Yes Activity: resume normal activities For Surgical Patients May shower: Yes Contact your physician for: bleeding, pain, tenderness, redness, swelling, yellowish discharge in the op. site For Congestive Heart Failure Reminder Report to your physician any weight gain of 5 pounds or more in one week. Jaguar Mora Aug 02, 2020 09:57
--- NOTE | 2020-08-02 09:58 | Surgery Progress Note ---
Surgery Progress Note Subjective Procedure Performed 1 diagnostic laparoscopy 2 laparoscopic assisted small bowel resection 3 extensive laparoscopic lysis of adhesions For abdominal washout and closure Additional Comments improved +BM min pain d/c home adv diet at home slowly Objective Last 24 Hour Vital Signs Date Time Temp Pulse Resp B/P (MAP) Pulse Ox O2 Delivery O2 Flow Rate FiO2 08/02/20 08:00 98.2 81 18 119/61 (80) 98 08/02/20 04:44 98.0 08/02/20 04:00 97.8 68 18 110/69 (83) 96 08/01/20 22:29 98.0 08/01/20 21:47 Room Air 08/01/20 21:06 98.0 08/01/20 20:00 97.9 74 18 104/61 (75) 96 08/01/20 16:00 98.0 71 18 115/56 (75) 98 08/01/20 12:00 97.3 74 18 120/63 (82) 99 I&O Intake and Output 08/01/20 08/02/20 19:00 07:00 Intake Total 600 ml Balance 600 ml Intake Oral 600 ml # Voids 4 2 Laboratory Tests Test 08/01/20 10:00 08/01/20 12:10 White Blood Count 9.4 K/UL (4.8-10.8) Red Blood Count 4.57 M/UL (4.20-5.40) Hemoglobin 13.1 G/DL (12.0-16.0) Hematocrit 41.7 % (37.0-47.0) Mean Corpuscular Volume 91 FL (80-99) Mean Corpuscular Hemoglobin 28.6 PG (27.0-31.0) Mean Corpuscular Hemoglobin Concent 31.4 G/DL (32.0-36.0) L Red Cell Distribution Width 13.6 % (11.6-14.8) Platelet Count 240 K/UL (150-450) Mean Platelet Volume 7.5 FL (6.5-10.1) Neutrophils (%) (Auto) 55.9 % (45.0-75.0) Lymphocytes (%) (Auto) 35.4 % (20.0-45.0) Monocytes (%) (Auto) 7.5 % (1.0-10.0) Eosinophils (%) (Auto) 0.4 % (0.0-3.0) Basophils (%) (Auto) 0.8 % (0.0-2.0) Sodium Level 144 MMOL/L (136-145) Potassium Level 3.0 MMOL/L (3.5-5.1) L Chloride Level 109 MMOL/L (98-107) H Carbon Dioxide Level 28 MMOL/L (21-32) Anion Gap 7 mmol/L (5-15) Blood Urea Nitrogen 14 mg/dL (7-18) Creatinine 0.5 MG/DL (0.55-1.30) L Estimat Glomerular Filtration Rate > 60 mL/min (>60) Glucose Level 150 MG/DL (74-106) H Calcium Level 7.5 MG/DL (8.5-10.1) L Phosphorus Level 0.6 MG/DL (2.5-4.9) *L Magnesium Level 2.5 MG/DL (1.8-2.4) H Total Bilirubin 0.8 MG/DL (0.2-1.0) Aspartate Amino Transf (AST/SGOT) 23 U/L (15-37) Alanine Aminotransferase (ALT/SGPT) 18 U/L (12-78) Alkaline Phosphatase 45 U/L (46-116) L Total Protein 6.3 G/DL (6.4-8.2) L Albumin 2.8 G/DL (3.4-5.0) L Globulin 3.5 g/dL Albumin/Globulin Ratio 0.8 (1.0-2.7) L Triglycerides Level 105 MG/DL (30-150) Cholesterol Level 127 MG/DL (< 200) LDL Cholesterol 46 mg/dL (<100) HDL Cholesterol 55 MG/DL (40-60) Cholesterol/HDL Ratio 2.3 (3.3-4.4) L POC Whole Blood Glucose 144 MG/DL (74-106) H Plan Problems: (1) Diabetes (2) UTI (urinary tract infection) (3) Abdominal pain (4) Vomiting (5) Dyslipidemia (6) Upper respiratory infection (7) Small bowel obstruction Assessment & Plan: This is a 70-year-old female with history of multiple abdominal surgeries including , hysterectomy, abdominoplasty who presented with acute onset abdominal pain for 1 day with associated nausea and vomiting. Leukocytosis identified CT with small bowel obstruction transition point in the pelvis. NG tube placed patient made n.p.o. and admitted further care and management. When seen at the bedside patient states her pain is fairly better and nothing as compared to yesterday when it began. States she has not had any flatus or bowel movement today last flatus and bowel movement was early yesterday prior to worsening onset. NG tube in place with minimal output since. KUB recent after CT scan with nonobstructive bowel gas pattern. On abdominal examination she is uncomfortable when palpating the lower pelvis but the remainder of the quadrants are fairly benign. She does not look significantly distended and is fairly comfortable. Currently no nausea vomiting fever chills. CT reviewed personally and there is significant portion of the small bowel with transition point identified in the proximal portion does have significant amount of fluid noted in it with distention. She is fairly constipated as the remaining of her colon distally is full. History of chronic constipation noted as well. Given the above findings Clinical examination review of the imaging patient does have a small bowel obstruction likely to secondary to abdominal adhesions from prior surgery. She has been initiated on nonoperative conservative management and slightly improved. I do long discussion with the patient regards the findings and decision and care plan choices. We discussed operative intervention versus nonoperative. Given she is made a slight improvement in the course over the past few hours we will continue with current care plan. N.p.o. IV fluids NG tube to suction repeat KUB in the morning followed by serial abdominal examinations. If continues to improve and potentially resolves a potential. Otherwise I discussed care plan with patient and there is potential for requi ring exploratory laparotomy. Will follow with recommendations thank you for letting present patient's care npo iv fluids trend labs CT with IV contrast ordered discussed with family and patient ng tube to low intermittent suction ct noted persistent sbo no better recommend surgery consent to or Liver: Unremarkable. Gallbladder and bile ducts: Unremarkable. Pancreas: Unremarkable. Spleen: Unremarkable. Adrenals: Unremarkable. Kidneys and ureters: Unremarkable. No obstructing stones. No hydronephrosis. Stomach and bowel: Small bowel obstruction. Transition point within the pelvis. Distention up to 3 cm. No perforation. PELVIS: Appendix: No findings to suggest acute appendicitis. Bladder: Unremarkable. Reproductive: Hysterectomy. ABDOMEN and PELVIS: Intraperitoneal space: Unremarkable. No free air. No significant fluid collection. Bones/joints: No acute fracture. Soft tissues: Unremarkable. Vasculature: Unremarkable. Lymph nodes: Unremarkable. IMPRESSION: Small bowel obstruction. Transition point within the pelvis. Distention up to 3 cm. No perforation. s/p lap sb resection wayne doing well recovering doing well d/c romo heparin incentive spirometry ambulate npo okay for ice chips await return of bowel function (8) Chest pain (9) Chest pain (10) Patellar fracture (11) Patient left without being seen (12) Knee contusion (13) Hand contusion (14) Injury of lower extremity (15) Injury of lower extremity (16) Knee abrasion Jaguar Mora Aug 02, 2020 09:58
[2020-08-02 10:13] LABS: BASOPHILS % (AUTO) 0.7 % (0.0-2.0); EOSINOPHILS % (AUTO) 1.3 % (0.0-3.0); HEMATOCRIT 37.5 % (37.0-47.0); LYMPHOCYTES % (AUTO) 43.3 % (20.0-45.0); MEAN CORPUSCULAR VOLUME 91 FL (80-99); MONOCYTES % (AUTO) 7.5 % (1.0-10.0); NEUTROPHILS % (AUTO) 47.2 % (45.0-75.0); PLATELET COUNT 216 K/UL (150-450); RED BLOOD COUNT 4.14 M/UL (4.20-5.40); RED CELL DISTRIBUTION WIDTH 12.9 % (11.6-14.8); WHITE BLOOD COUNT 8.4 K/UL (4.8-10.8)
--- NOTE | 2020-08-02 10:18 | Internal Med Progress Note ---
Subjective Physician Name López Matthews Attending Physician López Matthews M.D. Current Medications Medications (Trade) Dose Ordered Sig/Alexis Route PRN Reason Start Time Stop Time Status Last Admin Dose Admin Acetaminophen (Tylenol) 650 mg Q4H PRN RECTAL FEVER 07/29/20 17:30 08/28/20 17:29 Acetaminophen/ Codeine Phosphate (Tylenol #3) 1 tab Q6H PRN ORAL For Pain 08/02/20 09:15 08/09/20 09:14 Cetylpyridinium Chloride (Cepacol) 1 lozg Q2H PRN GILMAR SORE THROAT 07/28/20 14:30 10/26/20 14:29 Dextrose (Dextrose 50%) 25 ml Q30M PRN IV Hypoglycemia 07/28/20 11:45 10/26/20 11:44 Dextrose (Dextrose 50%) 50 ml Q30M PRN IV Hypoglycemia 07/28/20 11:45 10/26/20 11:44 Diphenhydramine HCl (Benadryl) 12.5 mg Q6H PRN IVP Itching/Pruritis 07/29/20 17:30 08/28/20 17:29 07/31/20 21:02 Docusate Sodium (Colace) 100 mg TWICE A DAY ORAL 08/02/20 18:00 09/01/20 17:59 Heparin Sodium (Porcine) (Heparin 5000 units/ml) 5,000 units EVERY 12 HOURS SUBQ 07/31/20 21:00 09/14/20 20:59 08/02/20 08:38 Insulin Aspart (NovoLOG) AC+HS SUBQ 08/01/20 17:00 10/26/20 17:59 Ketorolac Tromethamine (Toradol 30mg) 15 mg Q6H IV 08/01/20 10:00 08/03/20 09:59 08/02/20 04:14 Ondansetron HCl (Zofran) 4 mg Q4H PRN IVP Nausea & Vomiting 07/28/20 10:45 08/27/20 10:44 07/30/20 08:37 Allergies: Coded Allergies: No Known Allergies (Unverified , 06/08/19) ROS Limited/Unobtainable: No Subjective 1 diagnostic laparoscopy 2 laparoscopic assisted small bowel resection 3 extensive laparoscopic lysis of adhesions For abdominal washout and closure pain controlled doing well tolerating diet Objective Last Vital Signs Date Time Temp Pulse Resp B/P (MAP) Pulse Ox O2 Delivery O2 Flow Rate FiO2 08/02/20 08:00 98.2 81 18 119/61 (80) 98 08/01/20 21:47 Room Air 07/30/20 21:00 2.0 Laboratory Tests Test 08/01/20 12:10 08/02/20 09:45 POC Whole Blood Glucose 144 MG/DL (74-106) H White Blood Count 8.4 K/UL (4.8-10.8) Red Blood Count 4.14 M/UL (4.20-5.40) L Hemoglobin 12.0 G/DL (12.0-16.0) Hematocrit 37.5 % (37.0-47.0) Mean Corpuscular Volume 91 FL (80-99) Mean Corpuscular Hemoglobin 29.0 PG (27.0-31.0) Mean Corpuscular Hemoglobin Concent 32.0 G/DL (32.0-36.0) Red Cell Distribution Width 12.9 % (11.6-14.8) Platelet Count 216 K/UL (150-450) Mean Platelet Volume 7.6 FL (6.5-10.1) Neutrophils (%) (Auto) 47.2 % (45.0-75.0) Lymphocytes (%) (Auto) 43.3 % (20.0-45.0) Monocytes (%) (Auto) 7.5 % (1.0-10.0) Eosinophils (%) (Auto) 1.3 % (0.0-3.0) Basophils (%) (Auto) 0.7 % (0.0-2.0) Sodium Level Pending Potassium Level Pending Chloride Level Pending Carbon Dioxide Level Pending Blood Urea Nitrogen Pending Creatinine Pending Estimat Glomerular Filtration Rate Pending Glucose Level Pending Calcium Level Pending Phosphorus Level Pending Magnesium Level Pending Total Bilirubin Pending Aspartate Amino Transf (AST/SGOT) Pending Alanine Aminotransferase (ALT/SGPT) Pending Alkaline Phosphatase Pending Total Protein Pending Albumin Pending Globulin Pending Intake and Output 08/01/20 08/02/20 19:00 07:00 Intake Total 600 ml Balance 600 ml Intake Oral 600 ml # Voids 4 2 Objective General appearance: alert, cooperative, no distress, appears stated age Head: Normocephalic, without obvious abnormality, atraumatic Eyes: conjunctivae/corneas clear. PERRL, Throat: Lips, mucosa, and tongue normal. Teeth and gums normal Neck: supple, symmetrical, trachea midline, no adenopathy, thyroid: not enlarged, symmetric, no tenderness/mass/nodules, no carotid bruit and no JVD Lungs: clear to auscultation bilaterally Heart: regular rate and rhythm, S1, S2 normal, no murmur, click, rub or gallop Abdomen: Diffuse abd pain Extremities: extremities normal, atraumatic, no cyanosis or edema Pulses: 2+ and symmetric Skin: Skin color, texture, turgor normal. No rashes or lesions Neurologic: Grossly normal Assessment/Plan Assessment/Plan #abd pain #nausea #SBO #diabetes # dyslipidemia #multiple previous abdominal surgeries (c section, hysterectomy) IMPRESSION: Small bowel obstruction. Transition point within the pelvis. Distention up to 3 cm. No perforation. - admit inpatient - NG placement - hold meds for now - pain control - antiemetics - NPO - general surgery eval - Bg control - ISS López Matthews M.D. Aug 02, 2020 10:18
[2020-08-02 10:34] LABS: ALANINE AMINOTRANSFERASE 21 U/L (12-78); ALBUMIN 2.6 G/DL (3.4-5.0); ALBUMIN/GLOBULIN RATIO 0.8 (1.0-2.7); ALKALINE PHOSPHATASE 42 U/L (46-116); ANION GAP 6 mmol/L (5-15); ASPARTATE AMINO TRANSFERASE 23 U/L (15-37); BILIRUBIN,TOTAL 0.7 MG/DL (0.2-1.0); BLOOD UREA NITROGEN 6 mg/dL (7-18); CALCIUM 7.4 MG/DL (8.5-10.1); CARBON DIOXIDE 28 MMOL/L (21-32); CHLORIDE 111 MMOL/L (98-107); CREATININE 0.5 MG/DL (0.55-1.30); PHOSPHORUS 1.2 MG/DL (2.5-4.9); POTASSIUM 3.3 MMOL/L (3.5-5.1); SODIUM 144 MMOL/L (136-145)
[2020-08-02 12:00] VITALS: BP 120/69
--- NOTE | 2020-08-02 12:25 | Pulmonology Progress Note ---
Subjective ROS Limited/Unobtainable: No Interval Events: None major reported per nursing Constitutional: Reports: fever, other - resolved HEENT: Repors: no symptoms Respiratory: Reports: no symptoms Cardiovascular: Reports: no symptoms Gastrointestinal/Abdominal: Reports: constipation; Denies: nausea, vomiting Genitourinary: Reports: no symptoms Allergies: Coded Allergies: No Known Allergies (Unverified , 06/08/19) Objective Last 24 Hour Vital Signs Date Time Temp Pulse Resp B/P (MAP) Pulse Ox O2 Delivery O2 Flow Rate FiO2 08/02/20 11:36 98.2 08/02/20 09:00 Room Air 08/02/20 08:00 98.2 81 18 119/61 (80) 98 08/02/20 04:44 98.0 08/02/20 04:00 97.8 68 18 110/69 (83) 96 08/01/20 22:29 98.0 08/01/20 21:47 Room Air 08/01/20 21:06 98.0 08/01/20 20:00 97.9 74 18 104/61 (75) 96 08/01/20 16:00 98.0 71 18 115/56 (75) 98 Intake and Output 08/01/20 08/02/20 19:00 07:00 Intake Total 600 ml 75 ml Balance 600 ml 75 ml Intake Oral 600 ml IV Total 75 ml # Voids 4 2 General Appearance: no acute distress HEENT: atraumatic Respiratory: lungs clear Cardiovascular: normal rate, regular rhythm Abdomen: distended, tender Laboratory Tests 08/02/20 09:45: White Blood Count 8.4, Red Blood Count 4.14L, Hemoglobin 12.0, Hematocrit 37.5, Mean Corpuscular Volume 91, Mean Corpuscular Hemoglobin 29.0, Mean Corpuscular Hemoglobin Concent 32.0, Red Cell Distribution Width 12.9, Platelet Count 216, Mean Platelet Volume 7.6, Neutrophils (%) (Auto) 47.2, Lymphocytes (%) (Auto) 43.3, Monocytes (%) (Auto) 7.5, Eosinophils (%) (Auto) 1.3, Basophils (%) (Auto) 0.7, Sodium Level 144, Potassium Level 3.3L, Chloride Level 111H, Carbon Dioxide Level 28, Anion Gap 6, Blood Urea Nitrogen 6L, Creatinine 0.5L, Estimat Glomerular Filtration Rate > 60, Glucose Level 139H, Calcium Level 7.4L, Phosphorus Level 1.2L, Magnesium Level 2.2, Total Bilirubin 0.7, Aspartate Amino Transf (AST/SGOT) 23, Alanine Aminotransferase (ALT/SGPT) 21, Alkaline Phosp hatase 42L, Total Protein 5.9L, Albumin 2.6L, Globulin 3.3, Albumin/Globulin Ratio 0.8L Current Medications Medications (Trade) Dose Ordered Sig/Alexis Route PRN Reason Start Time Stop Time Status Last Admin Dose Admin Acetaminophen (Tylenol) 650 mg Q4H PRN RECTAL FEVER 07/29/20 17:30 08/28/20 17:29 Acetaminophen/ Codeine Phosphate (Tylenol #3) 1 tab Q6H PRN ORAL For Pain 08/02/20 09:15 08/09/20 09:14 Cetylpyridinium Chloride (Cepacol) 1 lozg Q2H PRN GILMAR SORE THROAT 07/28/20 14:30 10/26/20 14:29 Dextrose (Dextrose 50%) 25 ml Q30M PRN IV Hypoglycemia 07/28/20 11:45 10/26/20 11:44 Dextrose (Dextrose 50%) 50 ml Q30M PRN IV Hypoglycemia 07/28/20 11:45 10/26/20 11:44 Diphenhydramine HCl (Benadryl) 12.5 mg Q6H PRN IVP Itching/Pruritis 07/29/20 17:30 08/28/20 17:29 07/31/20 21:02 Docusate Sodium (Colace) 100 mg TWICE A DAY ORAL 08/02/20 18:00 09/01/20 17:59 Heparin Sodium (Porcine) (Heparin 5000 units/ml) 5,000 units EVERY 12 HOURS SUBQ 07/31/20 21:00 09/14/20 20:59 08/02/20 08:38 Insulin Aspart (NovoLOG) AC+HS SUBQ 08/01/20 17:00 10/26/20 17:59 Ketorolac Tromethamine (Toradol 30mg) 15 mg Q6H IV 08/01/20 10:00 08/03/20 09:59 08/02/20 11:06 Ondansetron HCl (Zofran) 4 mg Q4H PRN IVP Nausea & Vomiting 07/28/20 10:45 08/27/20 10:44 07/30/20 08:37 Assessment/Plan Assessment/Plan 1. UTI -Per primary MD 2. Nausea/vomiting with risk of aspiration - s/p NG tube; collecting bilious fluids -On Zofran for nausea -Monitor WBC and fever 3. Emphysematous changes on CXR -Patient denies smoking history; spoke to daughter as well who denies smoking hx -Patient is saturating well on room air; provide supplemental oxygen as needed 4. COVID-19 negative (07/28) 5. Small bowel obstruction -S/p diagnostic laparoscopy, laparoscopic-assisted small bowel resection, extensive laparoscopic lysis of adhesions. -f/u imaging (07/29); management per surgery 6. DM with hyperglycemia - BG control; Accu-checks - per primary MD Noted plans for discharge today Medically stable for discharge from pulmonary standpoint The care for this patient was discussed with my supervising physician. Time spent for this case was approximately 31 minutes. Addison Church Aug 02, 2020 12:25
[2020-08-02] MEDS ORDERED: Docusate 100mg cap ORAL SCH (18:00)
--- NOTE | 2020-08-03 15:23 | Discharge Summary ---
Discharge Summary Discharge Summary _ Date of admission: 07/27/2020 Date of discharge: 08/02/[address] Matthews History of Present Illness and Brief Hospital Course Ms. Bhat is a 70-year-old female with past medical history of diabetes mellitus, dyslipidemia, and multiple prior abdominal surgeries, who presented to the ED for evaluation of periumbilical abdominal pain after meal. Patient was chronically constipated requiring rectal enema periodically. Abdomen/pelvis CT revealed small bowel obstruction without perforation. Patient was admitted to the hospital for further management. Patient was also found to have emphysematous changes on chest x-ray. Patient denied smoking history. Given normoxemia on room air, no acute intervention or further work-up was indicated. Patient tested negative for COVID-19 in ER. Patient received NG tube. Patient was given Zofran for nausea and vomiting. She was started on nonoperative conservative management. Patient failed to show significant improvement with conservative management. Patient agreed to undergo diagnostic laparoscopy. Patient underwent laparoscopic-assisted small bowel resection and extensive laparoscopic lysis of adhesions. The details of the procedure can be found in the operative note by Dr. Mora. Patient tolerated the procedure well and was closely monitored after the surgery. Patient began having flatus and bowel movement. Patient was medically stable for discharge and was discharged home on 08/02/2020. Patient was instructed to follow-up with Dr. Mora on August 10, 2020 at 10 AM in his office. Consultants: Pulmonology Dr. Prince Surgery Dr. Mora Discharge Condition Improved and stable Discharge Activity Advance as tolerated Discharge Diet Slowly advance diet as tolerated at home Final diagnoses UTI Nausea/vomiting Small bowel obstruction s/p diagnostic laparoscopy, laparoscopic-assisted small bowel resection, extensive laparoscopic lysis of adhesions Diabetes mellitus with hyperglycemia Dyslipidemia I have been assigned to dictate discharge summary for this account. Addison Church Aug 03, 2020 15:23
--- NOTE | 2020-08-04 19:19 | Cardiology Report ---
APPROVED REPORT EKG Measurement Heart [id number] <Conclusion> Normal sinus rhythm Cannot rule out Anterior infarct, age undetermined Abnormal ECG
== END 2020-08-02 13:05 | disposition home or self-care (01) | DRG 330 ==
LOC: EMR 23:15 → 4E 23:57 → EDBEDREQ 07-28 04:31 → 4E 07-28 16:38
PROC: 0DNU4ZZ Release Omentum, Percutaneous Endoscopic Approach (ICD-10-PCS; principal; 2020-07-29 13:30)
PROC: 0DB84ZZ Excision of Small Intestine, Percutaneous Endoscopic Approach (ICD-10-PCS; principal; 2020-07-29 13:30)
DX: K56.50 Intestinal adhesions [bands], unspecified as to partial versus complete obstruction (principal); N39.0 Urinary tract infection, site not specified; E11.65 Type 2 diabetes mellitus with hyperglycemia; J06.9 Acute upper respiratory infection, unspecified; E78.5 Hyperlipidemia, unspecified; Z90.710 Acquired absence of both cervix and uterus; Z79.82 Long term (current) use of aspirin
CPT/HCPCS: 36415; 74018; 74176; 74177; 80053; 80061; 81003; 82150; 82962; 83036; 83605; 83690; 83735; 84100; 84484; 85025; 85610; 85651; 85730; 86140; 87040; 87086; 93005; 94003; 94150; 96374; 96375; 99285; J1815; J2250; J2405; J7030

== ENCOUNTER → 2020-07-27 | Emergency (ER) | payer MEDICARE, MEDICAID ==
[~2020-07-27] VITALS: Ht 157.5 cm; Wt 58.1 kg
[~2020-07-27] MED LIST changes: +ASPIR 8181 MG ORAL; +ATENOLOL25 MG ORAL; +BACITRACIN15 GM TOPIC; +LINZESS145 MCG PO; +LIPITOR40 MG ORAL; +Morphine Sulfate 2mg/ml Inj(IV/IM USE ONLY) ONE; +SYNJARDY 12.5-1 EACH PO; +TRULICITY1.5 MG/0.5 SQ; +VITAMIN B-121000 MC1 INJ
[2020-07-27 18:08] VITALS: BP 156/77
--- NOTE | 2020-07-27 19:16 | Emergency Room Report ---
History of Present Illness General Chief Complaint: Abdominal Pain Source: Patient Present Illness HPI This patient left prior to evaluation by medical provider. 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 Bush is my supervising Physician whom patient management has been discussed with. Diagnostic Impression: Primary Impression: Patient left without being seen ER Course This patient left prior to evaluation by medical provider. Last Vital Signs Date Time Temp Pulse Resp B/P (MAP) Pulse Ox O2 Delivery O2 Flow Rate FiO2 07/27/20 18:08 97.7 68 16 156/77 (103) 96 Room Air Disposition: LEFT W/OUT BEING SEEN Condition: Unknown Cathy Tolliver Jul 27, 2020 19:16
== END | disposition home or self-care (01) ==
LOC: EMR 18:49
DX: R10.9 Unspecified abdominal pain (principal); E11.9 Type 2 diabetes mellitus without complications; E78.00 Pure hypercholesterolemia, unspecified; Z53.21 Procedure and treatment not carried out due to patient leaving prior to being seen by health care provider